=== PATIENT | male | born 1995 | race Caucasian/White ===

== ENCOUNTER 2016-05-05 21:18 | Emergency (ER) | payer OTHER ==
[2016-05-05] MEDS ORDERED: METOCLOPRAMIDE 5 MG/ML 2 ML VIAL IVP STA (21:51)
[2016-05-05] MEDS ORDERED: SODIUM CHLORIDE 0.9% 1,000 ML IV STA (21:51)
[2016-05-05] MEDS ORDERED: SODIUM CHLORIDE 0.9% 2,000 ML IV STA (21:51)
[2016-05-05] MEDS ORDERED: PANTOPRAZOLE 40 MG/10 ML VIAL IVP STA (21:51)
--- NOTE | 2016-05-05 21:55 | ED ---
General Adult HPI - General Chief complaint: Nausea/Vomiting/Diarrhea Stated complaint: vomiting/weakness Time Seen by Provider: 05/05/16 21:42 Source: patient, RN notes reviewed, old records reviewed Mode of arrival: ambulatory Limitations: no limitations - History of Present Illness Initial comments: Chief complaint and history of present illness a 20-year-old male to complaint of nausea vomiting and feeling weak over the past several hours. Denies any pain. - Related Data Previous Rx's Medication Instructions Recorded Ondansetron Odt [Zofran ODT] 4 mg PO Q8HR PRN #5 tab 05/06/16 Allergies Allergy/AdvReac Type Severity Reaction Status Date / Time aspirin Allergy Unknown Verified 05/05/16 21:55 Childhood Review of Systems ROS Statement: Those systems with pertinent positive or pertinent negative responses have been documented in the HPI. Review of systems no headache or visual acuity changes. Patient denies any chest pain or shortness of breath. He has mild abdominal discomfort nausea vomiting denies diarrhea lately. States he feels very weak. All systems reviewed past medical problems asthma, ADHD and ADD. Denies any surgeries. No cancer in the family. ALLERGIES to aspirin. The patient does smoke strongly encouraged to stop denies alcohol use. 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 ROS Other: All systems not noted in ROS Statement are negative. Past Medical History Past Medical History: Asthma History of Any Multi-Drug Resistant Organisms: None Reported Past Surgical History: No Surgical Hx Reported Past Psychological History: ADD/ADHD Smoking Status: Current every day smoker Past Alcohol Use History: None Reported Past Drug Use History: None Reported General Exam - General Exam Comments Initial Comments: General: The patient is awake states he feels fatigued. Abdominal discomfort nausea vomiting. Vital signs temp 96.7 pulse 71 respiratory rate 16 pulse ox on percent room air blood pressure 104/56. Eye: Pupils are equal, round and reactive to light, extra-ocular movements are intact ; there is normal conjunctiva bilaterally. No signs of icterus. Ears, nose, mouth and throat: Mildly dry mucous membranes. Neck: The neck is supple, there is no tenderness , no complaint of meningeal irritation or stiff neck. Cardiovascular: There is a regular rate and rhythm. No murmur, rub or gallop is appreciated. Respiratory: Lungs are clear to auscultation, respirations are non-labored, breath sounds are equal. No wheezes, stridor, rales, or rhonchi. Gastrointestinal: Mildly tender left upper quadrant. Active bowel sounds. Back: Denies flank pain. Musculoskeletal: Normal ROM, no tenderness, There is no pedal edema. There is no calf tenderness or swelling. Sensation intact. Neurological: No complaint of any neuro deficits. All of feeling weak and dizzy with movement. Skin: Skin is warm and dry and no rashes or lesions are noted. Limitations: no limitations Course Vital Signs 05/05/16 05/05/16 05/06/16 21:25 23:00 00:11 Temperature 96.7 F L 97.9 F Pulse Rate 71 70 72 Respiratory 16 14 16 Rate Blood Pressure 104/56 108/68 115/58 O2 Sat by Pulse 100 97 98 Oximetry Medical Decision Making - Medical Decision Making Medical decision making; patient's white count 15.9 hemoglobin 16.8 and hematocrit of 47. BUN is 11 creatinine 0.8 GFR greater than 60. Potassium is 4.0. Glucose 91. Amylase lipase within normal limits. Abdominal x-rays were done and reviewed by radiologist his impression is; no specific evidence of intestinal obstruction or perforation seen, as above. As read by Dr. bahena While in emergency room the patient was rehydrated with 2 L of fluid received Reglan. And slept. Easily arousable. His significant other is with him in emergency room. She reports he was normal up until 1 PM that he went to visit with his aunt. He said he had nausea vomiting while there. His aunt was sick last week with similar complaints. The patient be discharged to the care of family. Prescription for Zofran will be made. Patient was advised to advance his diet. Follow-up with his family physician return emergency room as needed. - Lab Data Result diagrams: 05/05/16 22:00 05/05/16 22:00 Lab Results 05/05/16 05/05/16 Range/Units 22:00 22:00 WBC 15.9 H (4.0-11.0) k/uL RBC 5.42 (4.30-5.90) m/uL Hgb 16.8 (13.0-17.5) gm/dL Hct 47.3 (39.0-53.0) % MCV 87.2 (80.0-100.0) fL MCH 31.0 (25.0-35.0) pg MCHC 35.5 (31.0-37.0) g/dL RDW 12.3 (11.5-15.5) % Plt Count 207 (150-450) k/uL Neutrophils % 79 % Lymphocytes % 16 % Monocytes % 4 % Eosinophils % 0 % Basophils % 0 % Neutrophils # 12.5 H (1.3-7.7) k/uL Lymphocytes # 2.5 (1.0-4.8) k/uL Monocytes # 0.6 (0-1.0) k/uL Eosinophils # 0.0 (0-0.7) k/uL Basophils # 0.1 (0-0.2) k/uL Sodium 141 (137-145) mmol/L Potassium 4.0 (3.5-5.1) mmol/L Chloride 107 (98-107) mmol/L Carbon Dioxide 19 L (22-30) mmol/L Anion Gap 15 mmol/L BUN 11 (9-20) mg/dL Creatinine 0.80 (0.66-1.25) mg/dL Est GFR (MDRD) Af Amer >60 (>60 ml/min/1.73 sqM) Est GFR (MDRD) Non-Af >60 (>60 ml/min/1.73 sqM) Glucose 91 (74-99) mg/dL Calcium 9.8 (8.4-10.2) mg/dL Total Bilirubin 0.7 (0.2-1.3) mg/dL AST 29 (17-59) U/L ALT 28 (21-72) U/L Alkaline Phosphatase 77 (38-126) U/L Total Protein 7.6 (6.3-8.2) g/dL Albumin 4.8 (3.5-5.0) g/dL Amylase 58 (30-110) U/L Lipase 51 (23-300) U/L Disposition Clinical Impression: Gastroenteritis Disposition: HOME SELF-CARE Condition: Stable Instructions: Acute Nausea and Vomiting (ED) Additional Instructions: Advance her diet. Use bland food. Increase water intake, use Zofran for nausea and vomiting. Follow-up with family physician return emergency room as needed Prescriptions: Ondansetron Odt [Zofran ODT] 4 mg PO Q8HR PRN #5 tab PRN Reason: Nausea Time of Disposition: 00:42
[2016-05-05 22:34] LABS: Basophils # (A) 0.1 k/uL (0-0.2); Basophils % (A) 0 %; CH 31.8; CHCM 36.6; Eosinophils % (A) 0 %; HCT 47.3 % (39.0-53.0); HDW 2.63; HGB 16.8 gm/dL (13.0-17.5); Luc # (Auto) 0.17; Luc % (Auto) 1; Lymphocytes # (A) 2.5 k/uL (1.0-4.8); Lymphocytes % (A) 16 %; MCHC 35.5 g/dL (31.0-37.0); MCV 87.2 fL (80.0-100.0); Mean Platelet Volume 7.8; Monocytes # (A) 0.6 k/uL (0-1.0); Monocytes % (A) 4 %; Neutrophils # (A) 12.5 k/uL (1.3-7.7); Neutrophils % (A) 79 %; RBC 5.42 m/uL (4.30-5.90); RDW 12.3 % (11.5-15.5); WBC 15.9 k/uL (4.0-11.0); WBC (Perox) 15.62
--- NOTE | 2016-05-05 22:42 | XR ---
EXAM: XR Abdomen Complete, 2 or More Views. CLINICAL HISTORY: Reason: Pain TECHNIQUE: Frontal view of the abdomen/pelvis with upright view of the abdomen. COMPARISON: No relevant prior studies available. FINDINGS: Free air: None. Gastrointestinal tract: Unremarkable. No dilation. Mild amount of colonic stool seen. Bones: Unremarkable. No acute fracture. Other: Metallic density overlying the midthoracic spine in the upright view, particularly external to the patient. Correlate clinically. IMPRESSION: No specific evidence of intestinal obstruction or perforation seen, as above.
[2016-05-05 22:56] LABS: ALT 28 U/L (21-72); AST 29 U/L (17-59); Alkaline Phosphatase 77 U/L (38-126); Amylase 58 U/L (30-110); Anion Gap 15 mmol/L; Blood Urea Nitrogen 11 mg/dL (9-20); Calcium 9.8 mg/dL (8.4-10.2); Carbon Dioxide 19 mmol/L (22-30); Chloride 107 mmol/L (98-107); Glucose 91 mg/dL (74-99); Non-African American GFR(MDRD) >60 (>60 ml/min/1.73 sqM); Sodium 141 mmol/L (137-145); Total Bilirubin 0.7 mg/dL (0.2-1.3); Total Protein 7.6 g/dL (6.3-8.2)
[2016-05-05 23:21] VITALS: TEMP 97.9
[2016-05-06 00:13] VITALS: BP 115/58; PULSE 72; RESP 16
== END 2016-05-06 00:53 | disposition home or self-care (01) ==
LOC: EC 21:18
DX: K52.9 Noninfective gastroenteritis and colitis, unspecified (principal); F17.200 Nicotine dependence, unspecified, uncomplicated; Z88.6 Allergy status to analgesic agent
CPT/HCPCS: 99284; 96374; 96375; 96361 ×3; 36415; 80053; 82150; 83690; 85025; 74020; J2765; C9113

== ENCOUNTER 2016-06-06 13:15 | Emergency (ER) | payer OTHER ==
[2016-06-06 14:26] VITALS: RESP 18
[2016-06-06 16:09] VITALS: BP 130/60; PULSE 80
--- NOTE | 2016-06-06 16:17 | ED ---
Skin/Abscess/FB HPI - General Chief complaint: Skin/Abscess/Foreign Body Stated complaint: ABSCESS ON TAILBONE Time Seen by Provider: 06/06/16 15:48 Source: patient Mode of arrival: ambulatory - History of Present Illness Initial comments: 20-year-old male patient presents emergency Department stay for evaluation of a abscess to his lower back between his buttock crease. Patient states that this has been present on and off for the last 3 years. Patient states that his girlfriend is usually able to squeeze it and it goes away. Patient states that this time the site is not improving. Patient denies any significant pain, fever , or chills. He has not had a site evaluated by physician in the past. Patient denies any chest pain, shortness of breath, abdominal pain, nausea, vomiting, has patient, diarrhea, hematuria, dysuria, urinary urgency, urinary frequency. Denies any history of MRSA. - Related Data Previous Rx's Medication Instructions Recorded Sulfamethox-Tmp 800-160Mg [Bactrim 1 each PO Q12HR #20 tab 06/06/16 Ds] Allergies Allergy/AdvReac Type Severity Reaction Status Date / Time aspirin Allergy Unknown Verified 05/05/16 21:55 Childhood Review of Systems ROS Statement: Those systems with pertinent positive or pertinent negative responses have been documented in the HPI. ROS Other: All systems not noted in ROS Statement are negative. Past Medical History Past Medical History: Asthma History of Any Multi-Drug Resistant Organisms: None Reported Past Surgical History: No Surgical Hx Reported Past Psychological History: ADD/ADHD Smoking Status: Current every day smoker Past Alcohol Use History: None Reported Past Drug Use History: None Reported General Exam General appearance: alert, in no apparent distress Head exam: Present: atraumatic, normocephalic, normal inspection Eye exam: Present: normal appearance, PERRL, EOMI. Absent: scleral icterus, conjunctival injection, periorbital swelling ENT exam: Present: normal exam, mucous membranes moist Neck exam: Present: normal inspection. Absent: tenderness, meningismus, lymphadenopathy Respiratory exam: Present: normal lung sounds bilaterally. Absent: respiratory distress, wheezes, rales, rhonchi, stridor Cardiovascular Exam: Present: regular rate, normal rhythm, normal heart sounds. Absent: systolic murmur, diastolic murmur, rubs, gallop, clicks GI/Abdominal exam: Present: soft, normal bowel sounds. Absent: distended, tenderness, guarding, rebound, rigid Extremities exam: Present: normal inspection, full ROM, normal capillary refill. Absent: tenderness, pedal edema, joint swelling, calf tenderness Back exam: Present: other (1 cm x 1 cm abscess with around a 3 cm surrounding induration. No significant erythema, or swelling. There is a central opening that is draining pus.) Neurological exam: Present: alert, oriented X3, CN II-XII intact Psychiatric exam: Present: normal affect, normal mood Skin exam: Present: warm, dry, intact, normal color. Absent: rash Course Vital Signs 06/06/16 06/06/16 14:21 16:06 Temperature 98.4 F Pulse Rate 89 80 Respiratory 18 18 Rate Blood Pressure 171/101 130/60 O2 Sat by Pulse 98 99 Oximetry Medical Decision Making - Medical Decision Making 20-year-old male patient presented to emergency department today for evaluation of a pilonidal abscess. The area is open and draining currently, no surrounding erythema or inflammation. Patient will be placed on oral Bactrim twice daily. Patient given referral to Dr. Gregory for follow-up. Patient started to return for any new, worsening, or concerning symptoms. Patient verbalizes understanding and agrees with this plan. Disposition Clinical Impression: Pilonidal cyst Disposition: HOME SELF-CARE Condition: Stable Instructions: Pilonidal Cyst (ED) Additional Instructions: Warm sitz baths. Complain about a prescription of blood. Follow-up with general surgeon as directed. Return for any worsening, new, or concerning symptoms. Prescriptions: Sulfamethox-Tmp 800-160Mg [Bactrim Ds] 1 each PO Q12HR #20 tab Referrals: None,Stated [Primary Care Provider] - 1-2 days Sergey Gregory MD [STAFF PHYSICIAN] - 1-2 days Time of Disposition: 16:17
[2016-06-06 16:26] VITALS: TEMP 98.5
== END 2016-06-06 16:26 | disposition home or self-care (01) ==
LOC: EC 13:15
DX: L05.01 Pilonidal cyst with abscess (principal); F17.200 Nicotine dependence, unspecified, uncomplicated; Z88.6 Allergy status to analgesic agent
CPT/HCPCS: 87070; 87205; 99283

== ENCOUNTER 2016-09-12 21:43 | Inpatient (IN) | payer OTHER ==
[2016-09-12] MEDS ORDERED: IBUPROFEN 800 MG TAB PO STA (22:13)
[2016-09-12] MEDS ORDERED: ACETAMINOPHEN TAB 500 MG TAB PO STA (22:13)
--- NOTE | 2016-09-12 22:31 | ED ---
Skin/Abscess/FB HPI - General Chief complaint: Skin/Abscess/Foreign Body Stated complaint: Bug bite Time Seen by Provider: 09/12/16 22:08 Source: patient, RN notes reviewed Mode of arrival: wheelchair Limitations: no limitations - History of Present Illness Initial comments: 20-year-old male presents emergency Department chief complaint of right leg infection. Patient states it started 3 days ago and has progressively gotten worse. Patient states it does start what appeared to be an ingrown hair states he did squeeze the area and states that some pus came out. Patient states that he's had increased pain and swelling. Patient states that he has had a fever over the last few days 2. Patient states he just generalized not feeling well at this time. - Related Data Home Medications Medication Instructions Recorded Confirmed Ibuprofen [Motrin] 600 mg PO Q8HR PRN 09/12/16 09/12/16 Allergies Allergy/AdvReac Type Severity Reaction Status Date / Time aspirin Allergy Unknown Verified 09/12/16 22:05 Childhood venom-honey bee Allergy Unknown Verified 09/12/16 22:05 Review of Systems ROS Statement: Those systems with pertinent positive or pertinent negative responses have been documented in the HPI. ROS Other: All systems not noted in ROS Statement are negative. Past Medical History Past Medical History: Asthma History of Any Multi-Drug Resistant Organisms: None Reported Past Surgical History: No Surgical Hx Reported Past Psychological History: ADD/ADHD, Bipolar, Depression Smoking Status: Current every day smoker Past Alcohol Use History: None Reported Past Drug Use History: None Reported General Exam Limitations: no limitations General appearance: alert, in no apparent distress Head exam: Present: atraumatic, normocephalic, normal inspection Respiratory exam: Present: normal lung sounds bilaterally. Absent: respiratory distress, wheezes, rales, rhonchi, stridor Cardiovascular Exam: Present: regular rate, normal rhythm, normal heart sounds. Absent: systolic murmur, diastolic murmur, rubs, gallop, clicks Extremities exam: Present: other (Right leg there is negative erythema measuring naproxen for some years in diameter with a central papule there is some other areas of erythema that extended on the leg proximally 1 cm in diameter with similar central papule) Course Vital Signs 09/12/16 09/12/16 21:48 23:15 Temperature 101.4 F H 101.7 F H Pulse Rate 117 H 98 Respiratory 17 16 Rate Blood Pressure 122/70 102/55 O2 Sat by Pulse 98 95 Oximetry Medical Decision Making - Lab Data Result diagrams: 09/12/16 22:40 09/12/16 22:40 Lab Results 09/12/16 09/12/16 09/12/16 Range/Units 22:40 22:40 22:40 WBC 21.0 H (4.0-11.0) k/uL RBC 4.82 (4.30-5.90) m/uL Hgb 15.0 (13.0-17.5) gm/dL Hct 41.5 (39.0-53.0) % MCV 86.1 (80.0-100.0) fL MCH 31.1 (25.0-35.0) pg MCHC 36.1 (31.0-37.0) g/dL RDW 12.5 (11.5-15.5) % Plt Count 185 (150-450) k/uL Neutrophils % 85 % Lymphocytes % 8 % Monocytes % 5 % Eosinophils % 1 % Basophils % 0 % Neutrophils # 17.8 H (1.3-7.7) k/uL Lymphocytes # 1.6 (1.0-4.8) k/uL Monocytes # 1.1 H (0-1.0) k/uL Eosinophils # 0.2 (0-0.7) k/uL Basophils # 0.0 (0-0.2) k/uL Sodium 139 (137-145) mmol/L Potassium 4.0 (3.5-5.1) mmol/L Chloride 108 H (98-107) mmol/L Carbon Dioxide 18 L (22-30) mmol/L Anion Gap 13 mmol/L BUN 19 (9-20) mg/dL Creatinine 0.90 (0.66-1.25) mg/dL Est GFR (MDRD) Af Amer >60 (>60 ml/min/1.73 sqM) Est GFR (MDRD) Non-Af >60 (>60 ml/min/1.73 sqM) Glucose 87 (74-99) mg/dL Plasma Lactic Acid Rainer 0.7 (0.7-2.0) mmol/L Calcium 9.3 (8.4-10.2) mg/dL Disposition Clinical Impression: Cellulitis of right leg, Leukocytosis, Fever Disposition: ADMITTED IP TO THIS HOSP Condition: Fair Referrals: None,Stated [Primary Care Provider] - 1-2 days
[2016-09-12 22:50] LABS: Basophils % (A) 0 %; CH 30.6; CHCM 35.6; Eosinophils # (A) 0.2 k/uL (0-0.7); Eosinophils % (A) 1 %; HCT 41.5 % (39.0-53.0); HDW 2.48; Luc # (Auto) 0.18; Luc % (Auto) 1; Lymphocytes # (A) 1.6 k/uL (1.0-4.8); Lymphocytes % (A) 8 %; MCH 31.1 pg (25.0-35.0); MCHC 36.1 g/dL (31.0-37.0); MCV 86.1 fL (80.0-100.0); Mean Platelet Volume 7.6; Monocytes # (A) 1.1 k/uL (0-1.0); Monocytes % (A) 5 %; Neutrophils # (A) 17.8 k/uL (1.3-7.7); Neutrophils % (A) 85 %; RBC 4.82 m/uL (4.30-5.90); RDW 12.5 % (11.5-15.5); WBC (Perox) 21.99
[2016-09-12 23:00] LABS: Anion Gap 13 mmol/L; Blood Urea Nitrogen 19 mg/dL (9-20); Calcium 9.3 mg/dL (8.4-10.2); Carbon Dioxide 18 mmol/L (22-30); Chloride 108 mmol/L (98-107); Glucose 87 mg/dL (74-99); Non-African American GFR(MDRD) >60 (>60 ml/min/1.73 sqM); Sodium 139 mmol/L (137-145)
[2016-09-12] MEDS ORDERED: HYDROcodone/APAP 5-325MG 1 EACH TAB PO PRN (23:37)
[2016-09-12] MEDS ORDERED: ONDANSETRON 4 MG/2 ML VIAL IVP PRN (23:37)
[2016-09-12] MEDS ORDERED: NALOXONE 0.4 MG/ML 1 ML VIAL IV PRN (23:37)
[2016-09-12] MEDS ORDERED: MORPHINE SULFATE 2 MG/ML SYRINGE IV PRN (23:37)
[2016-09-12] MEDS ORDERED: IBUPROFEN 600 MG TAB PO PRN (23:37)
[2016-09-12] MEDS ORDERED: ACETAMINOPHEN TAB 325 MG TAB PO PRN (23:37)
[2016-09-12] MEDS ORDERED: IV VANCOMYCIN PER PHARMACY 1 EACH MISC MISCELLANE PRN (23:39)
[2016-09-12] MEDS ORDERED: AMPICILLIN-SULBACTAM 3 GM in SODIUM CHLORIDE 0.9% 100 ML IVPB STA (23:39)
--- NOTE | 2016-09-13 01:21 | XR ---
EXAM: XR Right Femur, 2 Views CLINICAL HISTORY: Reason: Pain TECHNIQUE: Frontal and lateral views of the right femur. COMPARISON: No relevant prior studies available. FINDINGS: No acute fracture or dislocation. No plain film evidence for osteomyelitis. IMPRESSION: As above.
[2016-09-13 01:29] VITALS: BMI 29.2
[2016-09-13] MEDS: VANCOMYCIN 1,250 MG in SODIUM CHLORIDE 0.9% 250 ML IVPB SCH ×2 (02:54→10:02)
[2016-09-13] MEDS ORDERED: AMPICILLIN-SULBACTAM 3 GM in SODIUM CHLORIDE 0.9% 100 ML IVPB SCH (08:00)
[2016-09-13 08:46] VITALS: BP 113/63; PULSE 85; RESP 16; TEMP 97.7
--- NOTE | 2016-09-13 18:49 | P.HPIM ---
History of Present Illness H&P Date: 09/13/16 (dc Summary as well) This is a 20-year-old gentleman that comes in to the hospital with complaints of right upper thigh pain. Patient stated that he celebrated the September went to bed and woke up with severe pain in his thigh. Patient states that she thinks she had a spider bite Patient was noted to have significant amount of pain in his thigh with swelling He was seen in the ER was noted to have a high white count was given a dose of vancomycin and 1 dose of by mouth Bactrim Patient today states that he is feeling better and his swelling is significantly improved Pain is improved as well Denies having any fevers chills nausea vomiting diarrhea at this time Patient did have some chills and a fever prior to admission Review of Systems All systems: negative (Noted in HPI) Past Medical History Past Medical History: Asthma History of Any Multi-Drug Resistant Organisms: None Reported Past Surgical History: No Surgical Hx Reported Past Psychological History: ADD/ADHD, Bipolar, Depression Smoking Status: Current every day smoker Past Alcohol Use History: None Reported Past Drug Use History: None Reported Medications and Allergies Home Medications Medication Instructions Recorded Confirmed Type Ibuprofen [Motrin] 600 mg PO Q8HR PRN 09/12/16 09/12/16 History Allergies Allergy/AdvReac Type Severity Reaction Status Date / Time aspirin Allergy Unknown Verified 09/12/16 22:05 Childhood venom-honey bee Allergy Unknown Verified 09/12/16 22:05 Physical Exam Vitals: Vital Signs Temp Pulse Pulse Resp BP BP Pulse Ox 09/13/16 08:00 85 16 09/13/16 06:45 97.7 F 85 16 113/63 98 09/13/16 01:10 98.1 F 91 17 96/51 96 09/13/16 00:15 100.9 F H 95 16 110/56 95 09/12/16 23:15 101.7 F H 98 16 102/55 95 09/12/16 21:48 101.4 F H 117 H 17 122/70 98 Intake and Output 09/13/16 09/13/16 09/13/16 06:59 14:59 22:59 Intake Total 250 480 Balance 250 480 Intake: Intake, IV Titration 250 Amount Vancomycin 1,250 mg In 250 Sodium Chloride 0.9% 250 ml @ 125 mls/hr IVPB Q8H [facility] Rx#:[id number] Oral 480 Other: Voiding Method Toilet Toilet # Voids 3 Weight 90 kg 90 kg Patient Weight 09/14/16 06:59 Weight 90 kg Physical exam Gen. appearance oriented 3 in no distress Neck is supple no JVD Lungs good air entry clear to auscultation no rhonchi or wheezing Heart S1-S2 heard regular rate and rhythm no murmurs appreciated Abdomen is soft nontender no organomegaly bowel sounds are intact Neurologically cranial nerves II-12 grossly intact no focal motor or sensory deficits noted Right thigh 3 areas On the right upper thigh there is a entry site with associated erythema and induration On the right lower thigh a small area of folliculitis is seen Results CBC & Chem 7: 09/12/16 22:40 09/12/16 22:40 Labs: Abnormal Lab Results - Last 24 Hours (Table) 09/12/16 09/12/16 Range/Units 22:40 22:40 WBC 21.0 H (4.0-11.0) k/uL Neutrophils # 17.8 H (1.3-7.7) k/uL Monocytes # 1.1 H (0-1.0) k/uL Chloride 108 H (98-107) mmol/L Carbon Dioxide 18 L (22-30) mmol/L Thrombosis Risk Factor Assmnt - Choose All That Apply Any of the Below Risk Factors Present?: No Other Risk Factors: No Thrombosis Risk Factor Assessment Level: Very Low Risk Assessment and Plan Plan: #1 sepsis secondary to cellulitis #2 ongoing tobacco use Plan Patient does appear to have multiple skin infections 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
[2016-09-14] MEDS ORDERED: VANCOMYCIN TROUGH DUE 1 EACH MISC MISCELLANE ONE (08:30)
== END 2016-09-13 17:42 | disposition home or self-care (01) | DRG 872 ==
LOC: EC 21:43 → 5MS5E 09-13 00:25
PROVIDERS: ADMIT Hospitalist; ATTEND Hospitalist
DX: A41.9 Sepsis, unspecified organism (principal); L03.115 Cellulitis of right lower limb; F90.9 Attention-deficit hyperactivity disorder, unspecified type; J45.909 Unspecified asthma, uncomplicated; L73.9 Follicular disorder, unspecified; F32.9 Major depressive disorder, single episode, unspecified; F17.200 Nicotine dependence, unspecified, uncomplicated; Z79.1 Long term (current) use of non-steroidal anti-inflammatories (NSAID); Z91.030 Bee allergy status; Z88.6 Allergy status to analgesic agent; W57.XXXA Bitten or stung by nonvenomous insect and other nonvenomous arthropods, initial encounter
CPT/HCPCS: 36415; 80048; 83605; 85025; 87040; 96365; 99285

== ENCOUNTER 2016-09-19 23:00 | Emergency (ER) | payer OTHER ==
[2016-09-19 23:09] VITALS: RESP 18
[2016-09-20] MEDS ORDERED: DEXAMETHASONE 4 MG TAB PO STA (00:19)
--- NOTE | 2016-09-20 00:37 | ED ---
ENT HPI - General Chief complaint: Dental/Oral Stated complaint: dental pain/facial swelling Time Seen by Provider: 09/19/16 23:38 Source: patient Mode of arrival: ambulatory Limitations: no limitations - History of Present Illness Initial comments: Patient is a 21-year-old male who presents with a chief complaint of right- sided tooth pain, and swelling. The patient states that this is been going on for 2 days. He says that he thinks a wisdom tooth is coming in. The patient states that he does not currently have pain however when he tries to open his mouth wide and has an ache. Patient is more concerned about the swelling to his right cheek. Patient has poor dentition in general, does not regularly see a dentist. Patient states that aggravating factors are opening his mouth wide. Alleviating factors are none. Patient states that he has not had a fever, he is not having trouble breathing, he is able to swallow. MD complaint: tooth pain Onset/Timin -: days(s) Location: tooth # (32) Severity: mild Severity scale (1-10): 0 Consistency: intermittent Improves with: none Worsens with: none Context- Dental: history of dental caries, poor dental care - Related Data Previous Rx's Medication Instructions Recorded Cefuroxime [Ceftin] 250 mg PO BID #20 tablet 09/13/16 Doxycycline Monohydrate [Monodox] 100 mg PO Q12HR #20 cap 09/13/16 Ibuprofen 800 mg PO TID PRN #30 tablet 09/13/16 Acetaminophen Tab [Tylenol Tab] 650 mg PO Q6H #20 tablet 09/20/16 Naproxen 500 mg PO TID #20 tablet 09/20/16 Penicillin V Potassium [Pen Vee K] 500 mg PO QID #28 tab 09/20/16 predniSONE 50 mg PO DAILY #4 tablet 09/20/16 Allergies Allergy/AdvReac Type Severity Reaction Status Date / Time aspirin Allergy Unknown Verified 09/19/16 23:20 Childhood venom-honey bee Allergy Unknown Verified 09/19/16 23:20 Review of Systems ROS Statement: Those systems with pertinent positive or pertinent negative responses have been documented in the HPI. Patient denies headache, blurry vision, lightheadedness, nausea, vomiting, shortness of breath, chest pain, difficulty swallowing, dysuria. ROS Other: All systems not noted in ROS Statement are negative. Past Medical History Past Medical History: Asthma History of Any Multi-Drug Resistant Organisms: None Reported Past Surgical History: No Surgical Hx Reported Past Psychological History: ADD/ADHD, Bipolar, Depression Smoking Status: Current every day smoker Past Alcohol Use History: Occasional Past Drug Use History: None Reported General Exam Limitations: no limitations General appearance: alert, in no apparent distress Head exam: Present: normocephalic Eye exam: Present: normal appearance ENT exam: Present: mucous membranes moist, other (Patient has poor dentition. There are multiple dental caries present however there are no obvious dental caries in the area of concern. Mild swelling to the right cheek. Tooth #32 appears to be erupted however the posterior aspect still underneath gum tissue.) Neck exam: Present: normal inspection Respiratory exam: Present: normal lung sounds bilaterally Cardiovascular Exam: Present: regular rate, normal rhythm GI/Abdominal exam: Present: soft Rectal exam: Present: deferred Extremities exam: Present: normal inspection Back exam: Present: normal inspection Neurological exam: Present: alert, oriented X3 Psychiatric exam: Present: normal affect, normal mood Skin exam: Present: warm, dry, intact Course Vital Signs 09/19/16 23:07 Temperature 98.6 F Pulse Rate 90 Respiratory 18 Rate Blood Pressure 124/79 O2 Sat by Pulse 98 Oximetry Medical Decision Making - Medical Decision Making Patient presents with a chief complaint of jaw swelling, and mild pain. Patient states he thinks there is a wisdom tooth coming in. On evaluation, tooth #32 appears to have erupted however still posteriorly covered by gum tissue. Patient has abnormal dentition at baseline. Given patient's swelling, and pain with jaw movement there is concern for periodontal abscess. Patient will be started on penicillin. Patient was prescribed naproxen, and Tylenol for pain. Patient was given 1 dose of Decadron in the emergency department for swelling. Patient will be prescribed 4 more days of prednisone for a total of 5 days. Patient is instructed to follow-up with a dental clinic for which he was given resources for. The patient states she has not yet followed up with a dentist because he has not hit 90 days yet at his current job and is not eligible for dental insurance at this time. Patient was offered a dental block however he states that he is not having any pain currently. Patient is instructed to return to the emergency department if his symptoms worsen, or change in any way. he was specifically counseled on symptoms that should prompt immediate return to the emergency department such as fever, difficulty breathing, or intractable nausea and vomiting. Patient was discharged in stable condition Disposition Clinical Impression: Dental abscess, Odontalgia Disposition: HOME SELF-CARE Condition: Good Instructions: Dental Abscess (ED), Dental Caries (ED) Prescriptions: Acetaminophen Tab [Tylenol Tab] 650 mg PO Q6H #20 tablet Naproxen 500 mg PO TID #20 tablet Penicillin V Potassium [Pen Vee K] 500 mg PO QID #28 tab predniSONE 50 mg PO DAILY #4 tablet Referrals: None,Stated [Primary Care Provider] - 1-2 days
[2016-09-20 00:54] VITALS: BP 128/67; PULSE 74; TEMP 97.7
== END 2016-09-20 00:54 | disposition home or self-care (01) ==
LOC: EC 23:00
DX: K04.7 Periapical abscess without sinus (principal); K02.9 Dental caries, unspecified; F17.200 Nicotine dependence, unspecified, uncomplicated; Z88.6 Allergy status to analgesic agent
CPT/HCPCS: 99282; J8540

== ENCOUNTER 2016-10-13 18:30 | Emergency (ER) | payer OTHER ==
[2016-10-13 18:48] VITALS: BP 143/76; PULSE 100; RESP 18; TEMP 97.9
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
== END 2016-10-13 19:10 | disposition home or self-care (01) ==
LOC: EC 18:30
DX: S60.221A Contusion of right hand, initial encounter (principal); F17.200 Nicotine dependence, unspecified, uncomplicated; Z88.6 Allergy status to analgesic agent; Z91.030 Bee allergy status; W22.09XA Striking against other stationary object, initial encounter
CPT/HCPCS: 99283

== ENCOUNTER 2017-04-04 14:20 | Emergency (ER) | payer OTHER ==
[2017-04-04 14:46] VITALS: BP 118/76; PULSE 81; RESP 18; TEMP 98.7
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
== END 2017-04-04 16:39 | disposition home or self-care (01) ==
LOC: EC 14:20
DX: S49.91XA Unspecified injury of right shoulder and upper arm, initial encounter (principal); F17.200 Nicotine dependence, unspecified, uncomplicated; Z91.030 Bee allergy status; Y04.0XXA Assault by unarmed brawl or fight, initial encounter
CPT/HCPCS: 73050; 99283

== ENCOUNTER 2017-04-18 11:30 | Emergency (ER) | payer OTHER ==
[2017-04-18] MEDS ORDERED: ONDANSETRON 4 MG/2 ML VIAL IVP STA (12:22)
[2017-04-18] MEDS ORDERED: SODIUM CHLORIDE 0.9% 1,000 ML IV ONE (12:22)
[2017-04-18] MEDS ORDERED: ACETAMINOPHEN TAB 500 MG TAB PO STA (12:30)
--- NOTE | 2017-04-18 12:30 | ED ---
URI HPI - General Chief Complaint: Upper Respiratory Infection Stated Complaint: FLU Time Seen by Provider: 04/18/17 11:58 Source: patient Mode of arrival: ambulatory Limitations: no limitations - History of Present Illness Initial Comments: This is a 21-year-old male who presents with a chief complaint of an upper respiratory infection and abdominal pain. The patient has had a productive cough , sinus congestion, rhinorrhea and fevers for 2 weeks without improvement. The patient reports coughing up "phlegm." He states he has been vomiting and having diarrhea for the last 3 days in addition to a severe headache that began today. He also complains of right upper quadrant abdominal pain that is constant in nature. He states he was evaluated about one week ago for "kidney pain" and a possible kidney infection which he ultimately did not have. He complains of nausea. He has not taken any prescription or over the counter medications. He denies recent travel history. - Related Data Previous Rx's Medication Instructions Recorded Ondansetron Odt [Zofran Odt] 4 mg PO Q8HR PRN #10 tab 04/18/17 Allergies Allergy/AdvReac Type Severity Reaction Status Date / Time venom-honey bee Allergy Unknown Verified 04/18/17 12:02 Review of Systems ROS Statement: Those systems with pertinent positive or pertinent negative responses have been documented in the HPI. ROS Other: All systems not noted in ROS Statement are negative. Past Medical History Past Medical History: Asthma History of Any Multi-Drug Resistant Organisms: None Reported Past Surgical History: No Surgical Hx Reported Past Psychological History: ADD/ADHD, Bipolar, Depression Smoking Status: Current every day smoker Past Alcohol Use History: Occasional Past Drug Use History: Marijuana General Exam Limitations: no limitations General appearance: alert, in no apparent distress Head exam: Present: atraumatic, normocephalic, normal inspection Eye exam: Present: normal appearance, PERRL, EOMI. Absent: scleral icterus, conjunctival injection, periorbital swelling ENT exam: Present: normal exam, normal oropharynx, mucous membranes dry, mucous membranes moist Neck exam: Present: normal inspection, full ROM. Absent: tenderness, meningismus, lymphadenopathy Respiratory exam: Present: wheezes. Absent: respiratory distress, rales, chest wall tenderness Cardiovascular Exam: Present: normal rhythm, tachycardia, normal heart sounds. Absent: rubs, gallop, clicks GI/Abdominal exam: Present: soft, tenderness (tender RUQ with palpation), normal bowel sounds. Absent: distended, guarding, rebound, rigid Back exam: Present: normal inspection Neurological exam: Present: alert, oriented X3, CN II-XII intact Psychiatric exam: Present: normal affect, normal mood Skin exam: Present: warm, dry, intact, normal color. Absent: rash Course Vital Signs 04/18/17 11:44 Temperature 100.1 F H Pulse Rate 102 H Respiratory 20 Rate Blood Pressure 131/68 O2 Sat by Pulse 99 Oximetry Medical Decision Making - Medical Decision Making This 21-year-old male presented to the ED with a chief complaint of upper respiratory infection and abdominal pain. He presented with a fever for which he was given Tylenol. He received Zofran for his nausea which seemed to improve. Chest x-rays were normal and negative for pneumonia. CMP, CBC, amylase , lipase and urinalysis results were revealed and all demonstrated to be unremarkable for any acute abnormality or infection. Influenza A & B also revealed to be negative. The patient received 1L of fluids during his stay. He was advised to take tylenol as needed for fever and will be given a prescription of Zofran for nausea. - Lab Data Result diagrams: 04/18/17 12:50 04/18/17 12:50 Lab Results 04/18/17 04/18/17 04/18/17 Range/Units 11:48 12:50 12:50 WBC 7.0 (3.8-10.6) k/uL RBC 5.37 (4.30-5.90) m/uL Hgb 16.1 (13.0-17.5) gm/dL Hct 46.4 (39.0-53.0) % MCV 86.3 (80.0-100.0) fL MCH 30.0 (25.0-35.0) pg MCHC 34.7 (31.0-37.0) g/dL RDW 12.3 (11.5-15.5) % Plt Count 266 (150-450) k/uL Neutrophils % 54 % Lymphocytes % 36 % Monocytes % 6 % Eosinophils % 2 % Basophils % 1 % Neutrophils # 3.8 (1.3-7.7) k/uL Lymphocytes # 2.5 (1.0-4.8) k/uL Monocytes # 0.4 (0-1.0) k/uL Eosinophils # 0.1 (0-0.7) k/uL Basophils # 0.1 (0-0.2) k/uL Sodium 144 (137-145) mmol/L Potassium 4.6 (3.5-5.1) mmol/L Chloride 107 (98-107) mmol/L Carbon Dioxide 27 (22-30) mmol/L Anion Gap 10 mmol/L BUN 12 (9-20) mg/dL Creatinine 0.88 (0.66-1.25) mg/dL Est GFR (MDRD) Af Amer >60 (>60 ml/min/1.73 sqM) Est GFR (MDRD) Non-Af >60 (>60 ml/min/1.73 sqM) Glucose 79 (74-99) mg/dL Calcium 9.8 (8.4-10.2) mg/dL Total Bilirubin 0.4 (0.2-1.3) mg/dL AST 16 L (17-59) U/L ALT 22 (21-72) U/L Alkaline Phosphatase 74 (38-126) U/L Total Protein 6.7 (6.3-8.2) g/dL Albumin 4.2 (3.5-5.0) g/dL Amylase 54 (30-110) U/L Lipase 66 (23-300) U/L Urine Color Urine Appearance (Clear) Urine pH (5.0-8.0) Ur Specific [place] (1.001-1.035) Urine Protein (Negative) Urine Glucose (UA) (Negative) Urine Ketones (Negative) Urine Blood (Negative) Urine Nitrite (Negative) Urine Bilirubin (Negative) Urine Urobilinogen (<2.0) mg/dL Ur Leukocyte Esterase (Negative) Influenza Type A RNA Not Detected (Not Detectd) Influenza Type B (PCR) Not Detected (Not Detectd) 04/18/17 Range/Units 12:58 WBC (3.8-10.6) k/uL RBC (4.30-5.90) m/uL Hgb (13.0-17.5) gm/dL Hct (39.0-53.0) % MCV (80.0-100.0) fL MCH (25.0-35.0) pg MCHC (31.0-37.0) g/dL RDW (11.5-15.5) % Plt Count (150-450) k/uL Neutrophils % % Lymphocytes % % Monocytes % % Eosinophils % % Basophils % % Neutrophils # (1.3-7.7) k/uL Lymphocytes # (1.0-4.8) k/uL Monocytes # (0-1.0) k/uL Eosinophils # (0-0.7) k/uL Basophils # (0-0.2) k/uL Sodium (137-145) mmol/L Potassium (3.5-5.1) mmol/L Chloride (98-107) mmol/L Carbon Dioxide (22-30) mmol/L Anion Gap mmol/L BUN (9-20) mg/dL Creatinine (0.66-1.25) mg/dL Est GFR (MDRD) Af Amer (>60 ml/min/1.73 sqM) Est GFR (MDRD) Non-Af (>60 ml/min/1.73 sqM) Glucose (74-99) mg/dL Calcium (8.4-10.2) mg/dL Total Bilirubin (0.2-1.3) mg/dL AST (17-59) U/L ALT (21-72) U/L Alkaline Phosphatase (38-126) U/L Total Protein (6.3-8.2) g/dL Albumin (3.5-5.0) g/dL Amylase (30-110) U/L Lipase (23-300) U/L Urine Color Yellow Urine Appearance Clear (Clear) Urine pH 8.0 (5.0-8.0) Ur Specific [place] 1.012 (1.001-1.035) Urine Protein Negative (Negative) Urine Glucose (UA) Negative (Negative) Urine Ketones Negative (Negative) Urine Blood Negative (Negative) Urine Nitrite Negative (Negative) Urine Bilirubin Negative (Negative) Urine Urobilinogen <2.0 (<2.0) mg/dL Ur Leukocyte Esterase Negative (Negative) Influenza Type A RNA (Not Detectd) Influenza Type B (PCR) (Not Detectd) Disposition Clinical Impression: Upper respiratory infection, Gastroenteritis Disposition: HOME SELF-CARE Condition: Stable Instructions: Upper Respiratory Infection (ED) Additional Instructions: Please return to the Emergency Department if experiencing new or worsening symptoms. Prescriptions: Ondansetron Odt [Zofran Odt] 4 mg PO Q8HR PRN #10 tab PRN Reason: Nausea Referrals: None,Stated [Primary Care Provider] - 1-2 days Time of Disposition: 13:49
[2017-04-18 13:10] LABS: Basophils # (A) 0.1 k/uL (0-0.2); Basophils % (A) 1 %; Eosinophils # (A) 0.1 k/uL (0-0.7); Eosinophils % (A) 2 %; HCT 46.4 % (39.0-53.0); HGB 16.1 gm/dL (13.0-17.5); Lymphocytes # (A) 2.5 k/uL (1.0-4.8); Lymphocytes % (A) 36 %; MCHC 34.7 g/dL (31.0-37.0); MCV 86.3 fL (80.0-100.0); Mean Platelet Volume 7.3; Monocytes # (A) 0.4 k/uL (0-1.0); Monocytes % (A) 6 %; Neutrophils # (A) 3.8 k/uL (1.3-7.7); Neutrophils % (A) 54 %; Platelet Count 266 k/uL (150-450); RBC 5.37 m/uL (4.30-5.90); RDW 12.3 % (11.5-15.5)
[2017-04-18 13:11] LABS: Appearance,Urine Clear (Clear); Bilirubin,Urine Negative (Negative); Blood,Urine Negative (Negative); Color,Urine Yellow; Glucose,Urine (UA) Negative (Negative); Ketones,Urine Negative (Negative); Leukocyte Esterase,Urine Negative (Negative); Nitrite,Urine Negative (Negative); Protein,Urine Negative (Negative); Specific Gravity,Urine 1.012 (1.001-1.035); Urobilinogen,Urine <2.0 mg/dL (<2.0)
--- NOTE | 2017-04-18 13:18 | XR ---
EXAMINATION TYPE: XR chest 2V DATE OF EXAM: 04/18/2017 HISTORY: Cough/pain. REFERENCE: Previous study dated 02/20/2017. FINDINGS: The lungs are clear. Pleural space are clear. The heart is not enlarged. IMPRESSION: NORMAL CHEST.
[2017-04-18 13:26] LABS: ALT 22 U/L (21-72); AST 16 U/L (17-59); Albumin 4.2 g/dL (3.5-5.0); Alkaline Phosphatase 74 U/L (38-126); Amylase 54 U/L (30-110); Anion Gap 10 mmol/L; Blood Urea Nitrogen 12 mg/dL (9-20); Calcium 9.8 mg/dL (8.4-10.2); Carbon Dioxide 27 mmol/L (22-30); Chloride 107 mmol/L (98-107); Glucose 79 mg/dL (74-99); Lipase 66 U/L (23-300); Potassium 4.6 mmol/L (3.5-5.1); Sodium 144 mmol/L (137-145); Total Bilirubin 0.4 mg/dL (0.2-1.3); Total Protein 6.7 g/dL (6.3-8.2)
[2017-04-18 14:01] VITALS: BP 136/63; PULSE 75; RESP 18; TEMP 98.7
== END 2017-04-18 14:01 | disposition home or self-care (01) ==
LOC: EC 11:30
DX: J06.9 Acute upper respiratory infection, unspecified (principal); K52.9 Noninfective gastroenteritis and colitis, unspecified; F17.200 Nicotine dependence, unspecified, uncomplicated; Z91.030 Bee allergy status
CPT/HCPCS: 36415; 80053; 82150; 83690; 85025; 81003; 87502; 71046; 99283; 96374; 96361; J2405

== ENCOUNTER 2017-05-31 21:41 | Emergency (ER) | payer OTHER ==
[2017-05-31] MEDS ORDERED: ONDANSETRON 4 MG/2 ML VIAL IVP STA (22:12)
[2017-05-31] MEDS ORDERED: MAG HYDROX/AL HYDROX/SIMETH 30 ML, HYOSCYAMINE ELIXIR 10 ML, CIMETIDINE HCL 300 MG, LID... PO STA ×4 (22:13)
--- NOTE | 2017-05-31 22:34 | ED ---
Nausea/Vomiting/Diarrhea HPI - General Chief complaint: Nausea/Vomiting/Diarrhea Stated complaint: nausea Time Seen by Provider: 05/31/17 21:57 Source: patient Mode of arrival: ambulatory Limitations: no limitations - History of Present Illness Initial comments: This patient is 21-year-old man who presents to be evaluated for nausea and vomiting mainly. The symptoms started about 2-3 days ago. He states over the course of today he has had 3 episodes of vomiting, which she describes mainly as dry heaves associated with a little bit of what is causing stomach acid. Patient also has had some intermittent mild, burning, left upper quadrant abdominal pain. Currently resolved. He has not noted any worsening or relieving factors associated. MD complaint: nausea, vomiting, abdominal pain Onset/Timin -: days(s) Description of Vomiting: watery Associated Abdominal Pain: Yes Location: LUQ Radiation: none Severity: mild Quality: other (Burning) Consistency: constant Improves with: none Worsens with: none Associated Symptoms: nausea/vomiting - Related Data Previous Rx's Medication Instructions Recorded Famotidine [Pepcid] 20 mg PO BID #14 tablet 05/31/17 Ondansetron Odt [Zofran ODT] 4 mg PO Q8HR PRN #10 tab 05/31/17 Allergies Allergy/AdvReac Type Severity Reaction Status Date / Time venom-honey bee Allergy Unknown Verified 05/31/17 22:18 Review of Systems ROS Statement: Those systems with pertinent positive or pertinent negative responses have been documented in the HPI. ROS Other: All systems not noted in ROS Statement are negative. Constitutional: Denies: fever, chills Respiratory: Denies: cough, dyspnea Cardiovascular: Denies: chest pain, palpitations, edema Gastrointestinal: Reports: as per HPI, abdominal pain, nausea, vomiting. Denies : diarrhea, constipation, hematemesis, melena, hematochezia Genitourinary: Denies: dysuria, hematuria, testicular pain, testicular mass Musculoskeletal: Denies: back pain Skin: Denies: rash Neurological: Denies: headache Past Medical History Past Medical History: Asthma History of Any Multi-Drug Resistant Organisms: None Reported Past Surgical History: No Surgical Hx Reported Past Psychological History: ADD/ADHD, Bipolar, Depression Smoking Status: Current every day smoker Past Alcohol Use History: Rare Past Drug Use History: Marijuana General Exam Limitations: no limitations General appearance: alert, in no apparent distress Head exam: Present: atraumatic, normocephalic Eye exam: Present: normal appearance. Absent: scleral icterus, conjunctival injection, nystagmus ENT exam: Present: normal oropharynx Respiratory exam: Present: normal lung sounds bilaterally. Absent: respiratory distress, wheezes, rales, rhonchi, stridor Cardiovascular Exam: Present: regular rate, normal rhythm, normal heart sounds. Absent: systolic murmur, diastolic murmur, rubs, gallop GI/Abdominal exam: Present: soft, normal bowel sounds. Absent: distended, tenderness, guarding, rebound, rigid, organomegaly, mass, pulsatile mass, hernia Extremities exam: Present: normal inspection, normal capillary refill. Absent: pedal edema, calf tenderness Back exam: Present: normal inspection. Absent: CVA tenderness (R), CVA tenderness (L) Neurological exam: Present: alert Skin exam: Present: warm, dry, intact, normal color. Absent: rash Course Vital Signs 05/31/17 21:54 Temperature 99.2 F Pulse Rate 79 Respiratory 16 Rate Blood Pressure 133/63 O2 Sat by Pulse 97 Oximetry Medical Decision Making - Lab Data Result diagrams: 05/31/17 22:26 05/31/17 22:26 Lab Results 05/31/17 05/31/17 05/31/17 Range/Units 22:26 22:26 22:26 WBC 7.7 (3.8-10.6) k/uL RBC 5.00 (4.30-5.90) m/uL Hgb 14.5 (13.0-17.5) gm/dL Hct 42.4 (39.0-53.0) % MCV 84.8 (80.0-100.0) fL MCH 29.0 (25.0-35.0) pg MCHC 34.2 (31.0-37.0) g/dL RDW 12.4 (11.5-15.5) % Plt Count 182 (150-450) k/uL Neutrophils % 47 % Lymphocytes % 43 % Monocytes % 6 % Eosinophils % 2 % Basophils % 1 % Neutrophils # 3.6 (1.3-7.7) k/uL Lymphocytes # 3.3 (1.0-4.8) k/uL Monocytes # 0.5 (0-1.0) k/uL Eosinophils # 0.2 (0-0.7) k/uL Basophils # 0.0 (0-0.2) k/uL Sodium 142 (137-145) mmol/L Potassium 4.2 (3.5-5.1) mmol/L Chloride 105 (98-107) mmol/L Carbon Dioxide 25 (22-30) mmol/L Anion Gap 12 mmol/L BUN 11 (9-20) mg/dL Creatinine 0.70 (0.66-1.25) mg/dL Est GFR (CKD-EPI)AfAm >90 (>60 ml/min/1.73 sqM) Est GFR (CKD-EPI)NonAf >90 (>60 ml/min/1.73 sqM) Glucose 82 (74-99) mg/dL Calcium 9.7 (8.4-10.2) mg/dL Total Bilirubin 0.3 (0.2-1.3) mg/dL AST 21 (17-59) U/L ALT 29 (21-72) U/L Alkaline Phosphatase 65 (38-126) U/L Total Protein 6.6 (6.3-8.2) g/dL Albumin 4.1 (3.5-5.0) g/dL Amylase 56 (30-110) U/L Lipase 57 (23-300) U/L Urine Color Light Yellow Urine Appearance Clear (Clear) Urine pH 7.5 (5.0-8.0) Ur Specific [place] 1.006 (1.001-1.035) Urine Protein Negative (Negative) Urine Glucose (UA) Negative (Negative) Urine Ketones Negative (Negative) Urine Blood Negative (Negative) Urine Nitrite Negative (Negative) Urine Bilirubin Negative (Negative) Urine Urobilinogen <2.0 (<2.0) mg/dL Ur Leukocyte Esterase Negative (Negative) Disposition Clinical Impression: Gastritis Disposition: HOME SELF-CARE Condition: Good Instructions: Gastritis (ED) Prescriptions: Famotidine [Pepcid] 20 mg PO BID #14 tablet Ondansetron Odt [Zofran ODT] 4 mg PO Q8HR PRN #10 tab PRN Reason: Nausea Referrals: None,Stated [Primary Care Provider] - 1-2 days Duncan Casas MD [STAFF PHYSICIAN] - 1-2 days
[2017-05-31 23:13] LABS: Appearance,Urine Clear (Clear); Basophils % (A) 1 %; Bilirubin,Urine Negative (Negative); Blood,Urine Negative (Negative); Color,Urine Light Yellow; Eosinophils # (A) 0.2 k/uL (0-0.7); Eosinophils % (A) 2 %; Glucose,Urine (UA) Negative (Negative); HCT 42.4 % (39.0-53.0); HGB 14.5 gm/dL (13.0-17.5); Ketones,Urine Negative (Negative); Leukocyte Esterase,Urine Negative (Negative); Lymphocytes # (A) 3.3 k/uL (1.0-4.8); Lymphocytes % (A) 43 %; MCHC 34.2 g/dL (31.0-37.0); MCV 84.8 fL (80.0-100.0); Mean Platelet Volume 7.6; Monocytes # (A) 0.5 k/uL (0-1.0); Monocytes % (A) 6 %; Neutrophils # (A) 3.6 k/uL (1.3-7.7); Neutrophils % (A) 47 %; Nitrite,Urine Negative (Negative); PH, Urine 7.5 (5.0-8.0); Platelet Count 182 k/uL (150-450); Protein,Urine Negative (Negative); RDW 12.4 % (11.5-15.5); Specific Gravity,Urine 1.006 (1.001-1.035); Urobilinogen,Urine <2.0 mg/dL (<2.0); WBC 7.7 k/uL (3.8-10.6)
[2017-05-31 23:27] LABS: ALT 29 U/L (21-72); AST 21 U/L (17-59); Albumin 4.1 g/dL (3.5-5.0); Alkaline Phosphatase 65 U/L (38-126); Amylase 56 U/L (30-110); Anion Gap 12 mmol/L; Blood Urea Nitrogen 11 mg/dL (9-20); Calcium 9.7 mg/dL (8.4-10.2); Carbon Dioxide 25 mmol/L (22-30); Chloride 105 mmol/L (98-107); Glucose 82 mg/dL (74-99); Lipase 57 U/L (23-300); Potassium 4.2 mmol/L (3.5-5.1); Sodium 142 mmol/L (137-145); Total Bilirubin 0.3 mg/dL (0.2-1.3); Total Protein 6.6 g/dL (6.3-8.2)
[2017-06-01 00:04] VITALS: BP 121/70; PULSE 70; RESP 18; TEMP 98
== END 2017-06-01 00:04 | disposition home or self-care (01) ==
LOC: EC 21:41
DX: K29.70 Gastritis, unspecified, without bleeding (principal); F17.200 Nicotine dependence, unspecified, uncomplicated; Z91.030 Bee allergy status
CPT/HCPCS: 99284; 96374; 36415; 80053; 82150; 83690; 85025; 81003; J2405

== ENCOUNTER 2017-09-29 21:38 | Emergency (ER) | payer OTHER ==
[2017-09-29 21:51] VITALS: RESP 18
[2017-09-29] MEDS ORDERED: ACETAMINOPHEN TAB 500 MG TAB PO STA (22:21)
[2017-09-29] MEDS ORDERED: IBUPROFEN 800 MG TAB PO STA (22:21)
[2017-09-29 22:34] LABS: Appearance,Urine Clear (Clear); Bilirubin,Urine Negative (Negative); Blood,Urine Negative (Negative); Color,Urine Yellow; Glucose,Urine (UA) Negative (Negative); Ketones,Urine Negative (Negative); Leukocyte Esterase,Urine Negative (Negative); Nitrite,Urine Negative (Negative); Protein,Urine Negative (Negative); Specific Gravity,Urine 1.021 (1.001-1.035); Urobilinogen,Urine <2.0 mg/dL (<2.0)
--- NOTE | 2017-09-29 23:09 | ED ---
General Adult HPI - General Chief complaint: Abdominal Pain Stated complaint: back pain Source: patient, family Mode of arrival: ambulatory Limitations: no limitations - History of Present Illness Initial comments: Dictation was produced using [employer] dictation software. please excuse any grammatical, word or spelling errors. Chief Complaint: 22-year-old male presents with chief complaint of bilateral lower back pain. History of Present Illness: Patient is a 22-year-old male presents with bilateral lower back pain. Patient states he woke up with the symptoms 2 days ago. Denies any trauma. Denies any constitutional symptoms. Patient states his pain is constant and exacerbated with rotation of the trunk. The ROS documented in this emergency department record has been reviewed and confirmed by me. Those systems with pertinent positive or negative responses have been documented in the HPI. All other systems are other negative and/or noncontributory. - Related Data Home Medications Medication Instructions Recorded Confirmed Naproxen Sodium [Aleve] 440 mg PO DAILY PRN 09/29/17 09/29/17 Allergies Allergy/AdvReac Type Severity Reaction Status Date / Time venom-honey bee Allergy Unknown Verified 09/29/17 22:08 Review of Systems ROS Statement: Those systems with pertinent positive or pertinent negative responses have been documented in the HPI. ROS Other: All systems not noted in ROS Statement are negative. Past Medical History Past Medical History: Asthma History of Any Multi-Drug Resistant Organisms: None Reported Past Surgical History: No Surgical Hx Reported Past Psychological History: ADD/ADHD, Bipolar, Depression Smoking Status: Current every day smoker Past Alcohol Use History: Rare Past Drug Use History: Marijuana General Exam - General Exam Comments Initial Comments: PHYSICAL EXAM: General Impression: Alert and oriented x3, not in acute distress HEENT: Normocephalic atraumatic, extra-ocular movements intact, pupils equal and reactive to light bilaterally, mucous membranes moist. Cardiovascular: Heart regular rate and rhythm, S1&S2 audible, no murmurs, rubs or gallops Chest: Lungs clear to auscultation bilaterally, no rhonchi, no wheeze, no rales Abdomen: Bowel sounds present, abdomen soft, non-tender, non-distended, no organomegaly Musculoskeletal: Pulses present and equal in all extremities, no peripheral edema, tenderness to palpation over the lower lumbar paraspinal musculature Motor: Power 5/5 bilaterally, no focal deficits noted Neurological: CN II-XII grossly intact, no focal motor or sensory deficits noted Skin: Intact with no visualized rashes Psych: Normal affect and mood Limitations: no limitations Course Vital Signs 09/29/17 09/29/17 21:47 22:37 Temperature 98.4 F Pulse Rate 75 82 Respiratory 18 18 Rate Blood Pressure 128/81 114/58 O2 Sat by Pulse 100 99 Oximetry Medical Decision Making - Medical Decision Making ED course: 22-year-old male presents with bilateral lower back pain. Clinical presentation consistent with lower musculoskeletal strain. Vital signs upon arrival are within normal limits. Urine was obtained for questionable nephrolithiasis. Urine is clear. Patient given Tylenol Motrin. Patient told that early mobility is the best treatment for back strain. Advised to follow-up with his primary care physician upon discharge. - Lab Data Lab Results 09/29/17 Range/Units 21:55 Urine Color Yellow Urine Appearance Clear (Clear) Urine pH 7.0 (5.0-8.0) Ur Specific [place] 1.021 (1.001-1.035) Urine Protein Negative (Negative) Urine Glucose (UA) Negative (Negative) Urine Ketones Negative (Negative) Urine Blood Negative (Negative) Urine Nitrite Negative (Negative) Urine Bilirubin Negative (Negative) Urine Urobilinogen <2.0 (<2.0) mg/dL Ur Leukocyte Esterase Negative (Negative) Disposition Clinical Impression: Low back strain Disposition: HOME SELF-CARE Condition: Good Instructions: Low Back Strain (ED) Is patient prescribed a controlled substance at d/c from ED?: No Referrals: None,Stated [Primary Care Provider] - 1-2 days Time of Disposition: 23:09
[2017-09-29 23:31] VITALS: BP 111/73; PULSE 71; TEMP 97.6
== END 2017-09-29 23:31 | disposition home or self-care (01) ==
LOC: EC 21:38
DX: S39.012A Strain of muscle, fascia and tendon of lower back, initial encounter (principal); F17.200 Nicotine dependence, unspecified, uncomplicated; Z91.030 Bee allergy status
CPT/HCPCS: 81003; 99284

== ENCOUNTER 2017-10-19 19:45 | Emergency (ER) | payer OTHER ==
[2017-10-19 20:33] VITALS: BP 115/79; PULSE 74; RESP 20; TEMP 98.1
[2017-10-19] MEDS ORDERED: KETOROLAC 30 MG/ML 1 ML VIAL IVP STA (21:23)
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
[2017-10-19 22:09] LABS: Appearance,Urine Clear (Clear); Bilirubin,Urine Negative (Negative); Blood,Urine Negative (Negative); Color,Urine Light Yellow; Glucose,Urine (UA) Negative (Negative); Ketones,Urine Negative (Negative); Leukocyte Esterase,Urine Negative (Negative); Nitrite,Urine Negative (Negative); Protein,Urine Negative (Negative); Specific Gravity,Urine 1.009 (1.001-1.035); Urobilinogen,Urine <2.0 mg/dL (<2.0)
[2017-10-19 22:18] LABS: Basophils # (A) 0.1 k/uL (0-0.2); Basophils % (A) 1 %; Eosinophils # (A) 0.3 k/uL (0-0.7); Eosinophils % (A) 3 %; HGB 15.4 gm/dL (13.0-17.5); Lymphocytes # (A) 4.7 k/uL (1.0-4.8); Lymphocytes % (A) 47 %; MCH 29.4 pg (25.0-35.0); MCHC 34.3 g/dL (31.0-37.0); MCV 85.8 fL (80.0-100.0); Mean Platelet Volume 6.7; Monocytes # (A) 0.6 k/uL (0-1.0); Monocytes % (A) 6 %; Neutrophils # (A) 4.2 k/uL (1.3-7.7); Neutrophils % (A) 42 %; Platelet Count 210 k/uL (150-450); RBC 5.24 m/uL (4.30-5.90); RDW 12.4 % (11.5-15.5)
[2017-10-19 22:20] LABS: ALT 27 U/L (21-72); AST 16 U/L (17-59); Albumin 4.2 g/dL (3.5-5.0); Alkaline Phosphatase 68 U/L (38-126); Anion Gap 11 mmol/L; Blood Urea Nitrogen 18 mg/dL (9-20); Calcium 9.7 mg/dL (8.4-10.2); Carbon Dioxide 23 mmol/L (22-30); Chloride 106 mmol/L (98-107); Glucose 98 mg/dL (74-99); Potassium 4.3 mmol/L (3.5-5.1); Sodium 140 mmol/L (137-145); Total Bilirubin 0.1 mg/dL (0.2-1.3); Total Protein 6.4 g/dL (6.3-8.2)
--- NOTE | 2017-10-19 22:29 | XR ---
EXAMINATION TYPE: XR ribs RT w pa chest xray DATE OF EXAM: 10/19/2017 COMPARISON: 04/18/2017 HISTORY: Rib pain TECHNIQUE: 5 views FINDINGS: Heart and mediastinum are normal. Lungs are clear. There is no sign of pleural effusion or pneumothorax. The right ribs appear intact. IMPRESSION: Negative right rib exam. Normal chest.
--- NOTE | 2017-10-19 22:55 | CT ---
EXAMINATION TYPE: CT abdomen pelvis w con DATE OF EXAM: 10/19/2017 COMPARISON: 12/31/2015 HISTORY: Right sided back and rib pain. CT DLP: 487.9 mGycm Automated exposure control for dose reduction was used. TECHNIQUE: Helical acquisition of images was performed from the lung bases through the pelvis. CONTRAST: Performed without Oral Contrast and with IV Contrast, patient injected with 100ml mL of Isovue 300. FINDINGS: Lung bases are clear. There is no pleural effusion. Heart size is normal. Liver spleen pancreas appear normal. Bile ducts are not dilated. Gallbladder is contracted. There is no evidence of pancreatic mass. There is no adrenal mass. Kidneys show satisfactory contrast opacification. There is no hydronephrosi s. Ureters are not dilated. There is no retroperitoneal adenopathy. Appendix is not definitely seen. There is no sign of appendicitis. Bladder distends smoothly. There is no pelvic mass. There is no everette e fluid in the pelvis. I see no intestinal wall thickening. There are no dilated loops. The visualize d ribs appear intact. Lumbar spine is intact. The bony pelvis appears intact. IMPRESSION: NEGATIVE CT SCAN OF THE ABDOMEN AND PELVIS. No evidence of traumatic injury.
== END 2017-10-19 23:24 | disposition home or self-care (01) ==
LOC: EC 19:45
DX: S29.9XXA Unspecified injury of thorax, initial encounter (principal); R10.11 Right upper quadrant pain; F17.200 Nicotine dependence, unspecified, uncomplicated; Z91.030 Bee allergy status; V28.5XXA Motorcycle passenger injured in noncollision transport accident in traffic accident, initial encounter; Y92.410 Unspecified street and highway as the place of occurrence of the external cause
CPT/HCPCS: 36415; 80053; 85025; 81003; 71101; 74177; 99284; 96374; J1885; Q9967

== ENCOUNTER 2018-01-07 23:29 | Emergency (ER) | payer OTHER ==
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
[2018-01-08] MEDS: KETOROLAC 30 MG/ML 1 ML VIAL IM STA (00:13)
[2018-01-08 00:23] VITALS: BP 122/68; PULSE 91; RESP 16; TEMP 98.2
== END 2018-01-08 00:23 | disposition home or self-care (01) ==
LOC: EC 23:29
DX: K02.9 Dental caries, unspecified (principal); K04.7 Periapical abscess without sinus; F17.200 Nicotine dependence, unspecified, uncomplicated; Z91.030 Bee allergy status
CPT/HCPCS: 96372; 99282

== ENCOUNTER 2021-08-18 10:22 | Emergency (ER) | payer OTHER ==
[2021-08-18 10:31] VITALS: BP 112/69; PULSE 103; RESP 16; TEMP 98.8
--- NOTE | 2021-08-18 11:15 | ED ---
General Adult HPI - General Chief complaint: Recheck/Abnormal Lab/Rx Stated complaint: Wants Covid test Time Seen by Provider: 08/18/21 10:35 Source: patient, RN notes reviewed Mode of arrival: ambulatory Limitations: no limitations - History of Present Illness Initial comments: 25-year-old male presents emergency Department with chief complaint of cough. He states is from air conditioner at that time. She is staying at. Patient states that he does not have a cough outside denies any fevers chills bodyaches no nasal congestion. Patient was sent here to rule out covid 19. - Related Data Previous Rx's Medication Instructions Recorded Ibuprofen [Motrin] 600 mg PO Q8HR PRN #20 tab 10/19/17 Ibuprofen [Motrin] 800 mg PO TID #30 tab 01/07/18 Penicillin V Potassium [Pen Vee K] 250 mg PO QID 7 Days #28 tablet 01/07/18 Allergies Allergy/AdvReac Type Severity Reaction Status Date / Time venom-honey bee Allergy Unknown Verified 08/18/21 10:28 Review of Systems ROS Statement: Those systems with pertinent positive or pertinent negative responses have been documented in the HPI. ROS Other: All systems not noted in ROS Statement are negative. Past Medical History Past Medical History: Asthma History of Any Multi-Drug Resistant Organisms: None Reported Past Surgical History: No Surgical Hx Reported Past Psychological History: ADD/ADHD, Bipolar, Depression Smoking Status: Current every day smoker Past Alcohol Use History: Rare Past Drug Use History: Marijuana General Exam Limitations: no limitations General appearance: alert, in no apparent distress Head exam: Present: atraumatic, normocephalic, normal inspection Eye exam: Present: normal appearance, PERRL, EOMI. Absent: scleral icterus, conjunctival injection, periorbital swelling ENT exam: Present: normal exam, mucous membranes moist Neck exam: Present: normal inspection, full ROM. Absent: tenderness, meningismus, lymphadenopathy Respiratory exam: Present: normal lung sounds bilaterally. Absent: respiratory distress, wheezes, rales, rhonchi, stridor Cardiovascular Exam: Present: regular rate, normal rhythm, normal heart sounds. Absent: systolic murmur, diastolic murmur, rubs, gallop, clicks Course Vital Signs 08/18/21 10:29 Temperature 98.8 F Pulse Rate 103 H Respiratory 16 Rate Blood Pressure 112/69 O2 Sat by Pulse 96 Oximetry Medical Decision Making - Medical Decision Making Patient neg for COVID-19. Patient is nonproductive cough. Patient discharged in stable condition return parameters were discussed. - Lab Data Lab Results 08/18/21 Range/Units 10:31 Coronavirus (PCR) Not Detected (Not Detectd) Disposition Clinical Impression: Cough, URI (upper respiratory infection) Disposition: HOME SELF-CARE Condition: Stable Instructions (If sedation given, give patient instructions): Upper Respiratory Infection (ED) Additional Instructions: Please return to the Emergency Department if symptoms worsen or any other concerns. Is patient prescribed a controlled substance at d/c from ED?: No Referrals: None,Stated [Primary Care Provider] - 1-2 days Time of Disposition: 11:14
== END 2021-08-18 11:29 | disposition home or self-care (01) ==
LOC: EC 10:22
DX: J06.9 Acute upper respiratory infection, unspecified (principal); Z20.822 Contact with and (suspected) exposure to COVID-19; J45.909 Unspecified asthma, uncomplicated; F17.200 Nicotine dependence, unspecified, uncomplicated; F12.90 Cannabis use, unspecified, uncomplicated
CPT/HCPCS: 87635; 99283

== ENCOUNTER 2021-11-06 14:53 | Emergency (ER) | payer OTHER ==
[2021-11-06 15:07] VITALS: TEMP 98.2
[2021-11-06 15:35] LABS: Basophils # (A) 0.1 k/uL (0-0.2); Basophils % (A) 1 %; Eosinophils # (A) 0.1 k/uL (0-0.7); Eosinophils % (A) 2 %; HCT 44.8 % (39.0-53.0); HGB 14.8 gm/dL (13.0-17.5); Lymphocytes # (A) 2.3 k/uL (1.0-4.8); Lymphocytes % (A) 31 %; MCV 91.1 fL (80.0-100.0); Mean Platelet Volume 7.7; Monocytes # (A) 0.4 k/uL (0-1.0); Monocytes % (A) 6 %; Neutrophils # (A) 4.3 k/uL (1.3-7.7); Neutrophils % (A) 58 %; Platelet Count 213 k/uL (150-450); RBC 4.92 m/uL (4.30-5.90); RDW 12.8 % (11.5-15.5); WBC 7.3 k/uL (3.8-10.6)
[2021-11-06 15:47] LABS: ALT 30 U/L (4-49); AST 29 U/L (17-59); African American GFR (CKD) >90 (>60 ml/min/1.73 sqM); Albumin 4.4 g/dL (3.5-5.0); Alkaline Phosphatase 67 U/L (38-126); Anion Gap 12 mmol/L; Blood Urea Nitrogen 14 mg/dL (9-20); Calcium 9.5 mg/dL (8.4-10.2); Carbon Dioxide 22 mmol/L (22-30); Chloride 107 mmol/L (98-107); Glucose 102 mg/dL (74-99); Non-African American GFR(CKD) >90 (>60 ml/min/1.73 sqM); Potassium 4.2 mmol/L (3.5-5.1); Sodium 141 mmol/L (137-145); Total Bilirubin 0.4 mg/dL (0.2-1.3); Total Protein 6.7 g/dL (6.3-8.2)
--- NOTE | 2021-11-06 17:12 | ED ---
General Adult HPI - General Chief complaint: Chest Pain Stated complaint: chest pain Time Seen by Provider: 11/06/21 17:01 Source: patient Mode of arrival: ambulatory Limitations: no limitations - History of Present Illness Initial comments: Dictation was produced using [employer] dictation software. please excuse any grammatical, word or spelling errors. Chief Complaint: 26-year-old male presents to the emergency prompt for chest burning for several months History of Present Illness: 26-year-old male who presents emergency department for episodic chest burning. He states that it sometimes is exacerbated by oral intake. Patient states he woke this morning with a burning sensation. Nonradiating. Not associated with diaphoresis or nausea. Patient has any cardiac comorbidities. No family history of cardiac comorbidities. Patient has any medical problems. Patient's a symptomatically at the bedside. No coughing. No psoas or shortness of breath. The ROS documented in this emergency department record has been reviewed and confirmed by me. Those systems with pertinent positive or negative responses have been documented in the HPI. All other systems are other negative and/or noncontributory. PHYSICAL EXAM: General Impression: Alert and oriented x3, not in acute distress HEENT: Normocephalic atraumatic, extra-ocular movements intact, pupils equal and reactive to light bilaterally, mucous membranes moist. Cardiovascular: Heart regular rate and rhythm Chest: Able to complete full sentences, no retractions, no tachypnea Abdomen: abdomen soft, non-tender, non-distended, no organomegaly Musculoskeletal: Pulses present and equal in all extremities, no peripheral edema Motor: no focal deficits noted Neurological: CN II-XII grossly intact, no focal motor or sensory deficits noted Skin: Intact with no visualized rashes Psych: Normal affect and mood ED course: 26-year-old male presents to the emergency department for chronic atypical chest pain. Vital signs upon arrival are within acceptable limits. Blood work and imaging was ordered by triage nurse per [facility] protocol. Blood work is unremarkable. Troponin is negative. Patient is well-appearing. Patient has no high-risk features. Patient discharged. There is suspicion that patient's symptoms are secondary to reflux. Patient given prescription for omeprazole. Patient given referral for primary care doctor. EKG interpretation: Ventricular rate 1, sinus rhythm,. 140, Q is 90, QTC 386. No UT prolongation, no QTC prolongation, no ST or T-wave changes noted. Overall, this EKG is unremarkablele - Related Data Previous Rx's Medication Instructions Recorded Omeprazole 40 mg PO DAILY 24 Days #24 cap 11/06/21 Allergies Allergy/AdvReac Type Severity Reaction Status Date / Time venom-honey bee Allergy Unknown Verified 11/06/21 17:27 Review of Systems ROS Statement: Those systems with pertinent positive or pertinent negative responses have been documented in the HPI. ROS Other: All systems not noted in ROS Statement are negative. Past Medical History Past Medical History: Asthma History of Any Multi-Drug Resistant Organisms: None Reported Past Surgical History: No Surgical Hx Reported Past Psychological History: ADD/ADHD, Bipolar, Depression Smoking Status: Current every day smoker Past Alcohol Use History: Rare Past Drug Use History: Marijuana General Exam Limitations: no limitations Course Vital Signs 11/06/21 15:05 Temperature 98.2 F Pulse Rate 99 Respiratory 20 Rate Blood Pressure 128/71 O2 Sat by Pulse 100 Oximetry Medical Decision Making - Lab Data Result diagrams: 11/06/21 15:09 11/06/21 15:09 Lab Results 11/06/21 11/06/21 11/06/21 Range/Units 15:09 15:09 15:09 WBC 7.3 (3.8-10.6) k/uL RBC 4.92 (4.30-5.90) m/uL Hgb 14.8 (13.0-17.5) gm/dL Hct 44.8 (39.0-53.0) % MCV 91.1 (80.0-100.0) fL MCH 30.0 (25.0-35.0) pg MCHC 33.0 (31.0-37.0) g/dL RDW 12.8 (11.5-15.5) % Plt Count 213 (150-450) k/uL MPV 7.7 Neutrophils % 58 % Lymphocytes % 31 % Monocytes % 6 % Eosinophils % 2 % Basophils % 1 % Neutrophils # 4.3 (1.3-7.7) k/uL Lymphocytes # 2.3 (1.0-4.8) k/uL Monocytes # 0.4 (0-1.0) k/uL Eosinophils # 0.1 (0-0.7) k/uL Basophils # 0.1 (0-0.2) k/uL Sodium 141 (137-145) mmol/L Potassium 4.2 (3.5-5.1) mmol/L Chloride 107 (98-107) mmol/L Carbon Dioxide 22 (22-30) mmol/L Anion Gap 12 mmol/L BUN 14 (9-20) mg/dL Creatinine 0.83 (0.66-1.25) mg/dL Est GFR (CKD-EPI)AfAm >90 (>60 ml/min/1.73 sqM) Est GFR (CKD-EPI)NonAf >90 (>60 ml/min/1.73 sqM) Glucose 102 H (74-99) mg/dL Calcium 9.5 (8.4-10.2) mg/dL Total Bilirubin 0.4 (0.2-1.3) mg/dL AST 29 (17-59) U/L ALT 30 (4-49) U/L Alkaline Phosphatase 67 (38-126) U/L Troponin I <0.012 (0.000-0.034) ng/mL Total Protein 6.7 (6.3-8.2) g/dL Albumin 4.4 (3.5-5.0) g/dL Disposition Clinical Impression: Chest pain Disposition: HOME SELF-CARE Condition: Good Instructions (If sedation given, give patient instructions): Chest Pain (ED) Prescriptions: Omeprazole 40 mg PO DAILY 24 Days #24 cap Is patient prescribed a controlled substance at d/c from ED?: No Referrals: Shamar Nolen MD [REFERRING] - 1-2 days Time of Disposition: 17:36
--- NOTE | 2021-11-06 17:39 | XR ---
EXAMINATION TYPE: XR chest 2V DATE OF EXAM: 11/06/2021 COMPARISON: 04/18/2017 HISTORY: Chest pain TECHNIQUE: 2 view FINDINGS: Heart and mediastinum are normal. Lungs are clear. Diaphragm is normal. Bony thorax is inta ct IMPRESSION: Normal chest. No change.
[2021-11-06 17:48] VITALS: RESP 18
[2021-11-06 18:17] VITALS: BP 122/68; PULSE 88
== END 2021-11-06 18:16 | disposition home or self-care (01) ==
LOC: EC 14:53
DX: R07.89 Other chest pain (principal); J45.909 Unspecified asthma, uncomplicated; F17.200 Nicotine dependence, unspecified, uncomplicated; Z91.030 Bee allergy status
CPT/HCPCS: 36415; 71046; 80053; 84484; 85025; 93005; 99285

== ENCOUNTER 2024-01-10 18:19 | Emergency (ER) | payer SELFPAY ==
[2024-01-10 18:27] VITALS: TEMP 100.6
--- NOTE | 2024-01-10 18:38 | ED ---
Nausea/Vomiting/Diarrhea HPI - General Chief complaint: Nausea/Vomiting/Diarrhea Stated complaint: Cough,Vomiting Time Seen by Provider: 01/10/24 18:31 Source: patient, RN notes reviewed Mode of arrival: ambulatory Limitations: no limitations - History of Present Illness Initial comments: 28-year-old male presenting to the emergency department chief complaint of productive cough, nausea, vomiting, chills over the past 3 weeks. Patient states that his sputum is yellow in color and has been worsening over the past few weeks. States he also been experiencing bodyaches and sore throat. Patient denies abdominal pain, hematemesis, coffee ground emesis, dark or tarry stools or hematochezia. Patient endorses daily marijuana use and states that warm s howers do help his symptoms of nausea and vomiting. - Related Data Previous Rx's Medication Instructions Recorded Omeprazole 40 mg PO DAILY 24 Days #24 cap 11/06/21 Azithromycin [Zithromax Z Pack] 0 tab PO DIRECTED #6 tab 01/10/24 Allergies Allergy/AdvReac Type Severity Reaction Status Date / Time venom-honey bee Allergy Unknown Verified 01/10/24 18:27 Review of Systems ROS Statement: Those systems with pertinent positive or pertinent negative responses have been documented in the HPI. ROS Other: All systems not noted in ROS Statement are negative. Past Medical History Past Medical History: Asthma History of Any Multi-Drug Resistant Organisms: None Reported Past Surgical History: No Surgical Hx Reported Past Psychological History: ADD/ADHD, Bipolar, Depression Smoking Status: Current every day smoker Past Alcohol Use History: Rare Past Drug Use History: Marijuana General Exam Limitations: no limitations General appearance: alert, in no apparent distress Eye exam: Present: normal appearance, PERRL, EOMI. Absent: scleral icterus, conjunctival injection, periorbital swelling Neck exam: Present: normal inspection. Absent: tenderness, meningismus, lymphadenopathy Respiratory exam: Present: normal lung sounds bilaterally. Absent: respiratory distress, wheezes, rales, rhonchi, stridor Cardiovascular Exam: Present: regular rate, normal rhythm, normal heart sounds. Absent: systolic murmur, diastolic murmur, rubs, gallop, clicks GI/Abdominal exam: Present: soft, normal bowel sounds. Absent: distended, tenderness, guarding, rebound, rigid Extremities exam: Present: normal inspection, full ROM, normal capillary refill. Absent: tenderness, pedal edema, joint swelling, calf tenderness Back exam: Present: normal inspection Skin exam: Present: warm, dry, intact, normal color. Absent: rash Course Vital Signs 01/10/24 01/10/24 18:24 20:30 Temperature 100.6 F H Pulse Rate 118 H 100 Respiratory 16 18 Rate Blood Pressure 116/72 119/70 O2 Sat by Pulse 97 100 Oximetry Medical Decision Making - Medical Decision Making Was pt. sent in by a medical professional or institution (, [facility], PART MAKER, urgent care, hospital, or jail...) When possible be specific @ -No Did you speak to anyone other than the patient for history (EMS, parent, family, police, friend...)? What history was obtained from this source @ -No Did you review nursing and triage notes (agree or disagree)? Why? @ -I reviewed and agree with nursing and triage notes Were old charts reviewed (outside hosp., previous admission, EMS record, old EKG, old radiological studies, urgent care reports/EKG's, jail records)? Report findings @ -No old charts were reviewed Differential Diagnosis (chest pain, altered mental status, abdominal pain women, abdominal pain men, vaginal bleeding, weakness, fever, dyspnea, syncope, headache, dizziness, GI bleed, back pain, seizure, CVA, palpatations, mental health, musculoskeletal)? @ -Differential Abdominal Pain Men: Appendicitis, cholecystitis, diverticulosis, ischemic bowel, pancreatitis, hepatitis, UTI, gastroenteritis, AAA, incarcerated hernia, bowel obstruction, constipation, inflammatory bowel, hepatitis, peptic ulcer disease, splenic infarction, perforated viscus, testicular torsion, this is not meant to be an all-inclusive list EKG interpreted by me (3pts min.). @ -none X-rays interpreted by me (1pt min.). @ -Chest x-ray reveals no acute cardiopulmonary process or disease CT interpreted by me (1pt min.). @ -None done U/S interpreted by me (1pt. min.). @ -None done What testing was considered but not performed or refused? (CT, X-rays, U/S, labs)? Why? @ -None What meds were considered but not given or refused? Why? @ -None Did you discuss the management of the patient with other professionals (professionals i.e. , PA, PART MAKER, lab, RT, psych nurse, director social, yarn texture machine operator, teacher, electronic intelligence officer, pillowcase maker)? Give summary @ -No Was smoking cessation discussed for >3mins.? @ -No Was critical care preformed (if so, how long)? @ -No Were there social determinants of health that impacted care today? How? (Homelessness, low income, unemployed, alcoholism, drug addiction, transportation, low edu. Level, literacy, decrease access to med. care, senior living, rehab)? @ -No Was there de-escalation of care discussed even if they declined (Discuss DNR or withdrawal of care, Hospice)? DNR status @ -No What co-morbidities impacted this encounter? (DM, HTN, Smoking, COPD, CAD, Cancer, CVA, ARF, Chemo, Hep., AIDS, mental health diagnosis, sleep apnea, morbid obesity)? @ -None Was patient admitted / discharged? Hospital course, mention meds given and route, prescriptions, significant lab abnormalities, going to OR and other pertinent info. @ -Discharge. 28-year-old male with productive cough, nausea and vomiting. On my evaluation the patient is resting comfortably no signs acute distress. Noted to be febrile with a oral temperature of 100.6 and tachycardic with heart rate of 118. Since abdominal examination is unremarkable. On discussion patient states that he smokes marijuana multiple times per day over the past few years and discussed that symptoms of emesis may be related to drug use. Patient will be symptomatically treated with IV fluids, antiemetics, and Tylenol pending laboratory results. He is agree with this plan. CBC, CMP unremarkable, COVID, flu, RSV negative. Patient is noted to have a productive cough while in the emergency department. Since patient's symptoms of productive cough and fever/chills have been present over the past 3 weeks there is concern for bact erial bronchitis. Patient will be provided with dose of Rocephin in the emergency department today prescription for azithromycin to cover for bacterial bronchitis. All questions have been answered at bedside and strict return parameters discussed with the patient he is verbalized understanding. Discussed with Dr. Mead Undiagnosed new problem with uncertain prognosis? @ -No Drug Therapy requiring intensive monitoring for toxicity (Heparin, Nitro, Insulin, Cardizem)? @ -No Were any procedures done? @ -No Diagnosis/symptom? @ -Acute bronchitis, nausea and vomiting secondary to marijuana abuse Acute, or Chronic, or Acute on Chronic? @ -acute Uncomplicated (without systemic symptoms) or Complicated (systemic symptoms)? @ -uncomplicated Side effects of treatment? @ -No Exacerbation, Progression, or Severe Exacerbation? @ -No Poses a threat to life or bodily function? How? (Chest pain, [place], [place], pneumonia, PE, COPD, DKA, ARF, appy, cholecystitis, CVA, Diverticulitis, Homicidal, Suicidal, threat to staff... and all critical care pts) @ -No - Lab Data Result diagrams: 01/10/24 19:07 01/10/24 19:07 Lab Results 01/10/24 01/10/24 01/10/24 Range/Units 19: 19: 19:07 WBC 6.9 (3.8-10.6) k/uL RBC 5.00 (4.30-5.90) m/uL Hgb 15.2 (13.0-17.5) gm/dL Hct 44.7 (39.0-53.0) % MCV 89.3 (80.0-100.0) fL MCH 30.3 (25.0-35.0) pg MCHC 33.9 (31.0-37.0) g/dL RDW 11.9 (11.5-15.5) % Plt Count 201 (150-450) k/uL MPV 7.4 Neutrophils % 63 % Lymphocytes % 21 % Monocytes % 13 % Eosinophils % 1 % Basophils % 1 % Neutrophils # 4.4 (1.3-7.7) k/uL Lymphocytes # 1.4 (1.0-4.8) k/uL Monocytes # 0.9 (0-1.0) k/uL Eosinophils # 0.1 (0-0.7) k/uL Basophils # 0.0 (0-0.2) k/uL Sodium 136 L (137-145) mmol/L Potassium 3.9 (3.5-5.1) mmol/L Chloride 108 H (98-107) mmol/L Carbon Dioxide 24 (22-30) mmol/L Anion Gap 4 mmol/L BUN 13 (9-20) mg/dL Creatinine 1.00 (0.66-1.25) mg/dL Est GFR (CKD-EPI)AfAm >90 (>60 ml/min/1.73 sqM) Est GFR (CKD-EPI)NonAf >90 (>60 ml/min/1.73 sqM) Glucose 80 (74-99) mg/dL Calcium 8.7 (8.4-10.2) mg/dL Total Bilirubin 0.4 (0.2-1.3) mg/dL AST 25 (17-59) U/L ALT 17 (4-49) U/L Alkaline Phosphatase 66 (38-126) U/L Total Protein 6.5 (6.3-8.2) g/dL Albumin 4.1 (3.5-5.0) g/dL Amylase 41 (30-110) U/L Lipase 70 (23-300) U/L Influenza Type A (PCR) Not Detected (Not Detectd) Influenza Type B (PCR) Not Detected (Not Detectd) RSV (PCR) Not Detected (Not Detectd) SARS-CoV-2 (PCR) Not Detected (Not Detectd) Disposition Clinical Impression: Acute bacterial bronchitis Disposition: HOME SELF-CARE Condition: Good Instructions (If sedation given, give patient instructions): Acute Bronchitis (ED) Additional Instructions: Please return to the Emergency Department if symptoms worsen or any other concerns. Complete full course of antibiotic as prescribed. Prescriptions: Azithromycin [Zithromax Z Pack] 0 tab PO DIRECTED #6 tab Is patient prescribed a controlled substance at d/c from ED?: No Referrals: None,Stated [Primary Care Provider] - 1-2 days Time of Disposition: 20:13
[2024-01-10] MEDS: ACETAMINOPHEN TAB 500 MG TAB PO STA (19:21)
[2024-01-10] MEDS: ONDANSETRON 4 MG/2 ML VIAL IVP STA (19:22)
[2024-01-10] MEDS: SODIUM CHLORIDE 0.9% 1,000 ML IV STA (19:22)
[2024-01-10 19:28] LABS: Basophils % (A) 1 %; Eosinophils # (A) 0.1 k/uL (0-0.7); Eosinophils % (A) 1 %; HCT 44.7 % (39.0-53.0); HGB 15.2 gm/dL (13.0-17.5); Lymphocytes # (A) 1.4 k/uL (1.0-4.8); Lymphocytes % (A) 21 %; MCH 30.3 pg (25.0-35.0); MCHC 33.9 g/dL (31.0-37.0); MCV 89.3 fL (80.0-100.0); Mean Platelet Volume 7.4; Monocytes # (A) 0.9 k/uL (0-1.0); Monocytes % (A) 13 %; Neutrophils # (A) 4.4 k/uL (1.3-7.7); Neutrophils % (A) 63 %; Platelet Count 201 k/uL (150-450); RDW 11.9 % (11.5-15.5); WBC 6.9 k/uL (3.8-10.6)
--- NOTE | 2024-01-10 19:37 | XR ---
EXAMINATION TYPE: XR chest 2V DATE OF EXAM: 01/10/2024 7:19 PM COMPARISON: None CLINICAL INDICATION: Male, 28 years old with history of productive cough, fever; H TECHNIQUE: XR chest 2V Frontal and lateral views of the chest. FINDINGS: Lungs/Pleura: There is no evidence of pleural effusion, focal consolidation, or pneumothorax. Pulmonary vascularity: Unremarkable. Heart/mediastinum: Cardiomediastinal silhouette is unremarkable. Musculoskeletal: No acute osseous pathology. IMPRESSION: No acute cardiopulmonary disease/process. [facility], , 01/10/2024 7:35 PM
[2024-01-10 20:02] LABS: ALT 17 U/L (4-49); AST 25 U/L (17-59); African American GFR (CKD) >90 (>60 ml/min/1.73 sqM); Albumin 4.1 g/dL (3.5-5.0); Alkaline Phosphatase 66 U/L (38-126); Amylase 41 U/L (30-110); Anion Gap 4 mmol/L; Blood Urea Nitrogen 13 mg/dL (9-20); Calcium 8.7 mg/dL (8.4-10.2); Carbon Dioxide 24 mmol/L (22-30); Chloride 108 mmol/L (98-107); Glucose 80 mg/dL (74-99); Lipase 70 U/L (23-300); Non-African American GFR(CKD) >90 (>60 ml/min/1.73 sqM); Potassium 3.9 mmol/L (3.5-5.1); Sodium 136 mmol/L (137-145); Total Bilirubin 0.4 mg/dL (0.2-1.3); Total Protein 6.5 g/dL (6.3-8.2)
[2024-01-10 20:31] VITALS: BP 119/70; PULSE 100; RESP 18
[2024-01-10] MEDS: cefTRIAXone IN SWFI 1,000 MG/10 ML SYRINGE IVP STA (20:31)
== END 2024-01-10 20:31 | disposition home or self-care (01) ==
LOC: EC 18:19
DX: J20.8 Acute bronchitis due to other specified organisms (principal); B96.89 Other specified bacterial agents as the cause of diseases classified elsewhere; F17.200 Nicotine dependence, unspecified, uncomplicated; Z91.030 Bee allergy status
CPT/HCPCS: 36415; 80053; 82150; 83690; 85025; 87636; 71046; 99284; 96374; 96375; 96361; J2405; J0696

== ENCOUNTER 2024-06-05 04:06 | Emergency (ER) | payer OTHER ==
[2024-06-05 04:10] VITALS: TEMP 97.6
[2024-06-05] MEDS: ONDANSETRON 4 MG/2 ML VIAL IVP STA (05:30)
[2024-06-05] MEDS: diphenhydrAMINE 50 MG/ML 1 ML VIAL IVP STA (05:30)
[2024-06-05] MEDS: methylPREDNISolone SOD SUCCI 40 MG/ML 1 ML VIAL IV STA (05:30)
[2024-06-05] MEDS: SODIUM CHLORIDE 0.9% 1,000 ML IV ONE (05:31)
[2024-06-05 06:02] LABS: Influenza A Not Detected (Not Detectd); Influenza B Not Detected (Not Detectd); RSV Not Detected (Not Detectd)
--- NOTE | 2024-06-05 06:22 | CT ---
EXAM: CT Head Without Intravenous Contrast CLINICAL HISTORY: ITS.REASON CT Reason: migraine TECHNIQUE: Axial computed tomography images of the head/brain without intravenous contrast. CTDI is 49.1 mGy and DLP is 1094 mGy-cm. This CT exam was performed using one or more of the following dose reduction techniques: automated exposure control, adjustment of the mA and/or kV according to patient size, and/or use of iterative reconstruction technique. COMPARISON: No relevant prior studies available. FINDINGS: Brain: Unremarkable. No hemorrhage. No significant white matter disease. No edema. Ventricles: Unremarkable. No ventriculomegaly. Bones/joints: Unremarkable. No acute fracture. Soft tissues: Unremarkable. Sinuses: Unremarkable as visualized. Mastoid air cells: Unremarkable as visualized. No mastoid effusion. IMPRESSION: No acute intracranial abnormality. Consider MRI if there is further concern.
[2024-06-05 06:48] VITALS: BP 118/76; PULSE 55; RESP 15
--- NOTE | 2024-06-05 06:55 | ED ---
General Adult HPI - General Chief complaint: Headache Stated complaint: headache Time Seen by Provider: 06/05/24 04:50 Source: patient, EMS, RN notes reviewed, old records reviewed Mode of arrival: EMS Limitations: no limitations - History of Present Illness Initial comments: Patient is a 28-year-old male who presents emergency department complaining of a migraine. Patient states he has suffered multiple episodes of head trauma over his lifetime and is concerned regarding his migraine. He has a history of migraines but states this 1 is slightly more severe. Is not on thinners. No recent trauma. He is asking for a CT scan and migraine cocktail. Vitals are within acceptable limits. States that typically his migraines improve after he forces himself to throw up any falls asleep. However he states that did not work which is why presents for further evaluation. - Related Data Previous Rx's Medication Instructions Recorded Omeprazole 40 mg PO DAILY 24 Days #24 cap 11/06/21 Azithromycin [Zithromax Z Pack] 0 tab PO DIRECTED #6 tab 01/10/24 Allergies Allergy/AdvReac Type Severity Reaction Status Date / Time venom-honey bee Allergy Unknown Verified 06/05/24 04:10 Review of Systems ROS Statement: Those systems with pertinent positive or pertinent negative responses have been documented in the HPI. Review of Systems: CONST: Denies fever EYES: Denies blurry vision ENT: Denies nasal congestion C/V: Denies Chest pain RESP: Denies shortness of breath GI: Denies abdominal pain : Denies dysuria SKIN: Denies rash. MSK: Denies joint pain. NEURO: Endorses headache ROS Other: All systems not noted in ROS Statement are negative. Past Medical History Past Medical History: Asthma History of Any Multi-Drug Resistant Organisms: None Reported Past Surgical History: No Surgical Hx Reported Past Psychological History: ADD/ADHD, Bipolar, Depression Smoking Status: Current every day smoker Past Alcohol Use History: Rare Past Drug Use History: Marijuana General Exam - General Exam Comments Initial Comments: General: Appears in no acute distress. HEAD: Normal with no signs of head trauma. EYES: PERRLA, EOMI, conjunctiva normal, no discharge. Pupils are 3 mm and equal bilaterally. ENT: Hearing grossly intact, normal oropharynx. RESPIRATORY: Clear breath sounds bilaterally. No wheezes, rales, or rhonchi. C/V: Regular rate and rhythm. S1 and S2 auscultated, no edema, peripheral pulses 2+ and intact throughout ABD: Abd is soft, nontender, nondistended EXT: No obvious deformity SKIN: No rashes or lesions observed on exposed skin. NEURO: Alert and oriented x 4. No focal deficits. Limitations: no limitations Course Vital Signs 06/05/24 06/05/24 04:08 06:46 Temperature 97.6 F Pulse Rate 78 55 L Respiratory 18 15 Rate Blood Pressure 134/90 118/76 O2 Sat by Pulse 97 97 Oximetry Medical Decision Making - Medical Decision Making Was pt. sent in by a medical professional or institution (, PA, SKATE BOARDER, urgent care, hospital, or residential...) When possible be specific @ -No Did you speak to anyone other than the patient for history (EMS, parent, family, police, friend...)? What history was obtained from this source @ -No Did you review nursing and triage notes (agree or disagree)? Why? @ -I reviewed and agree with nursing and triage notes Were old charts reviewed (outside hosp., previous admission, EMS record, old EKG, old radiological studies, urgent care reports/EKG's, residential records)? Report findings @ -No old charts were reviewed Differential Diagnosis (chest pain, altered mental status, abdominal pain women, abdominal pain men, vaginal bleeding, weakness, fever, dyspnea, syncope, headache, dizziness, GI bleed, back pain, seizure, CVA, palpatations, mental health, musculoskeletal)? @ -Differential Headache: Migraine, tension, cluster, carbon monoxide, central venous thrombosis, pension karma temporal arteritis, acute closure glaucoma, intercranial hemorrhage, mastoiditis, sinusitis, head injury, this is not meant to be an all-inclusive list. EKG interpreted by me (3pts min.). @ -As above X-rays interpreted by me (1pt min.). @ -None done CT interpreted by me (1pt min.). @ -CT brain shows no obvious acute intracranial process. U/S interpreted by me (1pt. min.). @ -None done What testing was considered but not performed or refused? (CT, X-rays, U/S, labs)? Why? @ -None What meds were considered but not given or refused? Why? @ -None Did you discuss the management of the patient with other professionals (professionals i.e. , PA, SKATE BOARDER, lab, RT, psych nurse, social psychologist, line builder, teacher, student liaison officer, field case manager)? Give summary @ -No Was smoking cessation discussed for >3mins.? @ -No Was critical care preformed (if so, how long)? @ -No Were there social determinants of health that impacted care today? How? (Homelessness, low income, unemployed, alcoholism, drug addiction, transportation, low edu. Level, literacy, decrease access to med. care, intermediate, rehab)? @ -No Was there de-escalation of care discussed even if they declined (Discuss DNR or withdrawal of care, Hospice)? DNR status @ -No What co-morbidities impacted this encounter? (DM, HTN, Smoking, COPD, CAD, Cancer, CVA, ARF, Chemo, Hep., AIDS, mental health diagnosis, sleep apnea, morbid obesity)? @ -None Was patient admitted / discharged? Hospital course, mention meds given and route, prescriptions, significant lab abnormalities, going to OR and other pertinent info. @ -Based on patient's presentation and physical exam, presents with acute on chronic migraines. Is asking for CT brain and therefore we will obtain 1. He does have a history of multiple head traumas in the past. Vital signs are within acceptable limits. He is given a migraine cocktail for pain. Vitals within acceptable limits. CT brain unremarkable. On reevaluation, patient is feeling improved. Patient be discharged home at this time. He was in agreement this plan. I instructed the patient to follow up with their PCP in the next 1-3 days. I explained that the patient should return to the emergency department if they experience any worsening symptoms. Strict return precautions were discussed with the patient. The patient expressed understanding of these instructions. I answered all questions that the patient had. The patient was discharged home in good condition with their prescriptions and follow up information. Undiagnosed new problem with uncertain prognosis? @ -No Drug Therapy requiring intensive monitoring for toxicity (Heparin, Nitro, Insulin, Cardizem)? @ -No Were any procedures done? @ -No Diagnosis/symptom? @ -Migraine headache Acute, or Chronic, or Acute on Chronic? @ -Acute Uncomplicated (without systemic symptoms) or Complicated (systemic symptoms)? @ -Uncomplicated Side effects of treatment? @ -No Exacerbation, Progression, or Severe Exacerbation? @ -No Poses a threat to life or bodily function? How? (Chest pain, [place], [place], pneumonia, PE, COPD, DKA, ARF, appy, cholecystitis, CVA, Diverticulitis, Homicidal, Suicidal, threat to staff... and all critical care pts) @ -Unlikely at this time - Lab Data Lab Results 06/05/24 Range/Units 05:16 Influenza Type A (PCR) Not Detected (Not Detectd) Influenza Type B (PCR) Not Detected (Not Detectd) RSV (PCR) Not Detected (Not Detectd) SARS-CoV-2 (PCR) Not Detected (Not Detectd) - EKG Data -: EKG Interpreted by Me EKG Comments: 12-lead Electrocardiogram Interpretation Note EKG was reviewed and interpreted by myself. 12-lead ECG performed at 0345 is interpreted by me as revealing sinus tachycardia at a rate of 100 beats per min elim ira. [place] is normal. [place] interval is 176 ms, QRS duration is 96 ms, QTc is 389 ms.. There were no ST or T wave abnormalities to suggest myocardial ischemia or injury. R wave progression across the precordium was satisfactory. By my interpretation this EKG is non-diagnostic for acute ischemia. Disposition Clinical Impression: Migraine Disposition: ADMITTED IP TO THIS HOSP Condition: Stable Instructions (If sedation given, give patient instructions): Migraine Headache (ED) Is patient prescribed a controlled substance at d/c from ED?: No Referrals: None,Stated [Primary Care Provider] - 1-2 days Time of Disposition: 06:55
== END 2024-06-05 06:53 | disposition other institution (70) ==
LOC: EC 04:06
DX: G43.909 Migraine, unspecified, not intractable, without status migrainosus (principal); F17.200 Nicotine dependence, unspecified, uncomplicated; Z91.030 Bee allergy status
CPT/HCPCS: 87636; 70450; 99284; 96374; 96375 ×2; 96361; J1200; J2405; J2919

== ENCOUNTER 2024-07-01 07:13 | Emergency (ER) | payer OTHER ==
[2024-07-01 07:16] VITALS: TEMP 97.9
--- NOTE | 2024-07-01 07:29 | ED ---
Abdominal Pain HPI - General Chief Complaint: Abdominal Pain Stated Complaint: abd pain, NVD Time Seen by Provider: 07/01/24 07:17 Source: patient, RN notes reviewed Mode of arrival: ambulatory Limitations: no limitations - History of Present Illness Initial Comments: 28-year-old male with patient presents emergency department for complaints of right-sided abdominal pain over the past day. Patient states that yesterday morning when he woke up he had " pain all over' but this morning when he woke up the pain was localized to the right side of his abdomen as well of the right upper quadrant. He states that he has had associated nausea, vomiting, diar kaitlynn. Denies urinary complaints, fevers, chills, chest pain or difficulty breathing. Denies previous surgical abdominal history. Does not take any medications to alleviate symptoms - Related Data Previous Rx's Medication Instructions Recorded Omeprazole 40 mg PO DAILY 24 Days #24 cap 11/06/21 Azithromycin [Zithromax Z Pack] 0 tab PO DIRECTED #6 tab 01/10/24 Allergies Allergy/AdvReac Type Severity Reaction Status Date / Time venom-honey bee Allergy Unknown Verified 06/05/24 04:10 Review of Systems ROS Statement: Those systems with pertinent positive or pertinent negative responses have been documented in the HPI. ROS Other: All systems not noted in ROS Statement are negative. Past Medical History Past Medical History: Asthma History of Any Multi-Drug Resistant Organisms: None Reported Past Surgical History: No Surgical Hx Reported Past Psychological History: ADD/ADHD, Bipolar, Depression Smoking Status: Current every day smoker, Vaper Past Alcohol Use History: Rare Past Drug Use History: Marijuana General Exam Limitations: no limitations ENT exam: Present: normal exam, mucous membranes moist Neck exam: Present: normal inspection. Absent: tenderness, meningismus, lymphadenopathy Respiratory exam: Present: normal lung sounds bilaterally. Absent: respiratory distress, wheezes, rales, rhonchi, stridor Cardiovascular Exam: Present: regular rate, normal rhythm, normal heart sounds. Absent: systolic murmur, diastolic murmur, rubs, gallop, clicks GI/Abdominal exam: Present: soft, tenderness (RUQ), normal bowel sounds. Absent: distended, guarding, rebound, rigid Extremities exam: Present: normal inspection, full ROM, normal capillary refill. Absent: tenderness, pedal edema, joint swelling, calf tenderness Back exam: Present: normal inspection. Absent: CVA tenderness (R), CVA tenderness (L) Course Vital Signs 07/01/24 07/01/24 07/01/24 07:14 07:16 08:42 Temperature 97.9 F Pulse Rate 86 68 80 Respiratory 18 16 20 Rate Blood Pressure 149/82 130/68 130/80 O2 Sat by Pulse 99 98 98 Oximetry Medical Decision Making - Medical Decision Making Was pt. sent in by a medical professional or institution (, [facility], DIGITAL SALES MANAGER, urgent care, hospital, or usp...) When possible be specific @ -No Did you speak to anyone other than the patient for history (EMS, parent, family, police, friend...)? What history was obtained from this source @ -No Did you review nursing and triage notes (agree or disagree)? Why? @ -I reviewed and agree with nursing and triage notes Were old charts reviewed (outside hosp., previous admission, EMS record, old EKG, old radiological studies, urgent care reports/EKG's, usp records)? Report findings @ -No old charts were reviewed Differential Diagnosis (chest pain, altered mental status, abdominal pain women, abdominal pain men, vaginal bleeding, weakness, fever, dyspnea, syncope, headache, dizziness, GI bleed, back pain, seizure, CVA, palpatations, mental health, musculoskeletal)? @ -Differential Abdominal Pain Men: Appendicitis, cholecystitis, diverticulosis, ischemic bowel, pancreatitis, hepatitis, UTI, gastroenteritis, AAA, incarcerated hernia, bowel obstruction, constipation, inflammatory bowel, hepatitis, peptic ulcer disease, splenic infarction, perforated viscus, testicular torsion, this is not meant to be an all-inclusive list EKG interpreted by me (3pts min.). @ -none X-rays interpreted by me (1pt min.). @ -None done CT interpreted by me (1pt min.). @ -None done U/S interpreted by me (1pt. min.). @ -Ultrasound of the gallbladder no evidence of acute process What testing was considered but not performed or refused? (CT, X-rays, U/S, labs)? Why? @ -None What meds were considered but not given or refused? Why? @ -None Did you discuss the management of the patient with other professionals (professionals i.e. , [employer], DIGITAL SALES MANAGER, lab, RT, psych nurse, social science analyst, rf microwave engineer, teacher, aoc operations intelligence officer, case filler)? Give summary @ -No Was smoking cessation discussed for >3mins.? @ -No Was critical care preformed (if so, how long)? @ -No Were there social determinants of health that impacted care today? How? (Homelessness, low income, unemployed, alcoholism, drug addiction, transportation, low edu. Level, literacy, decrease access to med. care, fpc, rehab)? @ -No Was there de-escalation of care discussed even if they declined (Discuss DNR or withdrawal of care, Hospice)? DNR status @ -No What co-morbidities impacted this encounter? (DM, HTN, Smoking, COPD, CAD, Cancer, CVA, ARF, Chemo, Hep., AIDS, mental health diagnosis, sleep apnea, morbid obesity)? @ -None Was patient admitted / discharged? Hospital course, mention meds given and route, prescriptions, significant lab abnormalities, going to OR and other pertinent info. @ -Discharge. 28-year-old male present Emergency Department with right-sided abdominal pain. Pain is mildly reproducible right upper quadrant. Initial vitals are stable. Patient is provided with IV fluids, antiemetics, Toradol for pain relief. Laboratory test including CBC, CMP unremarkable. Urinalysis with signs infection, negative ketones. Ultrasound no evidence of acute process. On reevaluation patient states that he is feeling well. Symptoms likely secondary to gastroenteritis with nausea, vomiting, diarrhea. Provided with outpatient prescription for Zofran. Recommend follow-up with primary care provider. Return parameters discussed. Case discussed with Dr. Adame Undiagnosed new problem with uncertain prognosis? @ -No Drug Therapy requiring intensive monitoring for toxicity (Heparin, Nitro, Insulin, Cardizem)? @ -No Were any procedures done? @ -No Diagnosis/symptom? @ -Gastroenteritis Acute, or Chronic, or Acute on Chronic? @ -Acute Uncomplicated (without systemic symptoms) or Complicated (systemic symptoms)? @ -Uncomplicated Side effects of treatment? @ -No Exacerbation, Progression, or Severe Exacerbation? @ -No Poses a threat to life or bodily function? How? (Chest pain, USA, PR, pneumonia, PE, COPD, DKA, ARF, appy, cholecystitis, CVA, Diverticulitis, Homicidal, Suicidal, threat to staff... and all critical care pts) @ -No - Lab Data Result diagrams: 07/01/24 07:28 07/01/24 07:28 Lab Results 07/01/24 07/01/24 07/01/24 Range/Units 07:28 07:28 07:28 WBC 8.61 (4.50-10.00) 10*3/uL RBC 5.28 (4.40-5.60) 10*6/uL Hgb 16.6 (13.0-17.0) g/dL Hct 47.2 (39.6-50.0) % MCV 89.4 (80.0-97.0) fL MCH 31.4 (27.0-32.0) pg MCHC 35.2 (32.0-37.0) g/dL Plt Count 237 (140-440) 10*3/uL MPV 10.1 (9.5-12.2) fL Immature Gran % (Auto) 0.6 % Neutrophils % 66.9 % Lymphocytes % 22.8 % Monocytes % 7.8 % Eosinophils % 1.2 % Basophils % 0.7 % Immature Gran # 0.05 H (0.00-0.04) 10*3/uL Neutrophils # 5.77 (1.80-7.70) 10*3/uL Lymphocytes # 1.96 (0.90-5.00) 10*3/uL Monocytes # 0.67 (0.20-1.00) 10*3/uL Eosinophils # 0.10 (0.04-0.35) 10*3/uL Basophils # 0.06 (0.00-0.10) 10*3/uL Sodium 140 (137-145) mmol/L Potassium 4.5 (3.5-5.1) mmol/L Chloride 106 (98-107) mmol/L Carbon Dioxide 23 (22-30) mmol/L Anion Gap 11 mmol/L BUN 11 (9-20) mg/dL Creatinine 0.78 (0.66-1.25) mg/dL Est GFR (CKD-EPI)AfAm >90 (>60 ml/min/1.73 sqM) Est GFR (CKD-EPI)NonAf >90 (>60 ml/min/1.73 sqM) Glucose 104 H (74-99) mg/dL Calcium 9.9 (8.4-10.2) mg/dL Total Bilirubin 0.5 (0.2-1.3) mg/dL AST 22 (17-59) U/L ALT 20 (4-49) U/L Alkaline Phosphatase 72 (38-126) U/L Total Protein 7.2 (6.3-8.2) g/dL Albumin 4.7 (3.5-5.0) g/dL Amylase 52 (30-110) U/L Lipase 79 (23-300) U/L Urine Color Colorless Urine Appearance Cloudy (Clear) Urine pH 6.5 (5.0-8.0) Ur Specific [place] 1.014 (1.001-1.035) Urine Protein Negative (Negative) Urine Glucose (UA) Negative (Negative) Urine Ketones Negative (Negative) Urine Blood Negative (Negative) Urine Nitrite Negative (Negative) Urine Bilirubin Negative (Negative) Urine Urobilinogen <2.0 (<2.0) mg/dL Ur Leukocyte Esterase Negative (Negative) Urine RBC 1 (0-5) /hpf Urine WBC 1 (0-5) /hpf Ur Squamous Epith Cells 1 (0-4) /hpf Amorphous Sediment Rare H (None) /hpf Urine Mucus Rare H (None) /hpf Disposition Clinical Impression: Unspecified abdominal pain, Acute nausea with nonbilious vomiting Disposition: HOME SELF-CARE Condition: Good Instructions (If sedation given, give patient instructions): Abdominal Pain (ED) Additional Instructions: Please return to the Emergency Department if symptoms worsen or any other concerns. Is patient prescribed a controlled substance at d/c from ED?: No Referrals: None,Stated [Primary Care Provider] - 1-2 days Time of Disposition: 08:21
[2024-07-01] MEDS: SODIUM CHLORIDE 0.9% 1,000 ML IV ONE (07:34)
[2024-07-01] MEDS: ONDANSETRON 4 MG/2 ML VIAL IVP STA (07:34)
[2024-07-01] MEDS: KETOROLAC 15 MG/ML 1 ML VIAL IVP STA (07:35)
[2024-07-01 07:42] LABS: Basophils # (A) 0.06 10*3/uL (0.00-0.10); Basophils % (A) 0.7 %; Eosinophils % (A) 1.2 %; HCT 47.2 % (39.6-50.0); HGB 16.6 g/dL (13.0-17.0); Lymphocytes # (A) 1.96 10*3/uL (0.90-5.00); Lymphocytes % (A) 22.8 %; MCH 31.4 pg (27.0-32.0); MCHC 35.2 g/dL (32.0-37.0); MCV 89.4 fL (80.0-97.0); Mean Platelet Volume 10.1 fL (9.5-12.2); Monocytes # (A) 0.67 10*3/uL (0.20-1.00); Monocytes % (A) 7.8 %; Neutrophils # (A) 5.77 10*3/uL (1.80-7.70); Neutrophils % (A) 66.9 %; Platelet Count 237 10*3/uL (140-440); RBC 5.28 10*6/uL (4.40-5.60); WBC 8.61 10*3/uL (4.50-10.00)
[2024-07-01 07:54] LABS: ALT 20 U/L (4-49); AST 22 U/L (17-59); African American GFR (CKD) >90 (>60 ml/min/1.73 sqM); Albumin 4.7 g/dL (3.5-5.0); Alkaline Phosphatase 72 U/L (38-126); Amorphous Sediment,Urine Rare /hpf; Amylase 52 U/L (30-110); Anion Gap 11 mmol/L; Appearance,Urine Cloudy (Clear); Bilirubin,Urine Negative (Negative); Blood Urea Nitrogen 11 mg/dL (9-20); Blood,Urine Negative (Negative); Calcium 9.9 mg/dL (8.4-10.2); Carbon Dioxide 23 mmol/L (22-30); Chloride 106 mmol/L (98-107); Color,Urine Colorless; Glucose 104 mg/dL (74-99); Glucose,Urine (UA) Negative (Negative); Ketones,Urine Negative (Negative); Leukocyte Esterase,Urine Negative (Negative); Lipase 79 U/L (23-300); Mucus,Urine Rare /hpf; Nitrite,Urine Negative (Negative); Non-African American GFR(CKD) >90 (>60 ml/min/1.73 sqM); PH, Urine 6.5 (5.0-8.0); Potassium 4.5 mmol/L (3.5-5.1); Protein,Urine Negative (Negative); RBC,Urine 1 /hpf (0-5); Sodium 140 mmol/L (137-145); Specific Gravity,Urine 1.014 (1.001-1.035); Squamous Epithelial Cell,Urine 1 /hpf (0-4); Total Bilirubin 0.5 mg/dL (0.2-1.3); Total Protein 7.2 g/dL (6.3-8.2); Urobilinogen,Urine <2.0 mg/dL (<2.0); WBC,Urine 1 /hpf (0-5)
--- NOTE | 2024-07-01 08:12 | US ---
EXAMINATION TYPE: US gallbladder DATE OF EXAM: 07/01/2024 COMPARISON: CT abdomen and pelvis 10/19/2017 CLINICAL INDICATION: Male, 28 years old with history of RUQ ab pain; Pain TECHNIQUE: Grayscale and color Doppler imaging of the right upper quadrant was performed. FINDINGS: EXAM MEASUREMENTS: Liver Length: 14.5 cm Gallbladder Wall: .2 cm CBD: .3 cm Right Kidney: 10.8 x 4.0 x 4.1 cm HUMAN RESOURCES DEPARTMENT SUPERVISOR NOTES: Pancreas: Obscured by bowel gas Liver: wnl Gallbladder: No stones seen Evidence for sonographic Dumas's sign: No CBD: wnl Right Kidney: No hydronephrosis or masses seen Pancreas is obscured by overlying bowel gas. Liver appears unremarkable without focal lesion. No gall stones, wall thickening or surrounding fluid. Negative sonographic Dumas's sign. Common bile duct is within normal limits. Right kidney demonstrates no solid mass, hydronephrosis or shadowing calculus. IMPRESSION: No ultrasound evidence for acute process. [facility], , 07/01/2024 8:10 AM
[2024-07-01 08:42] VITALS: BP 130/80; PULSE 80; RESP 20
== END 2024-07-01 08:42 | disposition home or self-care (01) ==
LOC: EC 07:13
DX: K52.9 Noninfective gastroenteritis and colitis, unspecified (principal); F17.290 Nicotine dependence, other tobacco product, uncomplicated; Z91.030 Bee allergy status
CPT/HCPCS: 36415; 80053; 82150; 83690; 85025; 81001; 76705; 99284; 96374; 96375; 96361; J2405; J1885